=== PATIENT | female | born 1940 | race Caucasian/White ===

== ENCOUNTER 2021-10-19 13:16 | Inpatient (IN) | payer MEDICARE, SELFPAY ==
[2021-10-19] VITALS (10 sets, daily range): BP systolic 109–135; BP diastolic 51–88; PULSE 87–104; RESP 16–18; TEMP 37.1–37.5; O2SAT 95; BMI 20.7; BMI 20.8
--- NOTE | 2021-10-19 13:42 | XR_ITS ---
FINAL REPORT CLINICAL HISTORY: . aspiration , ams COMPARISON: September 10, 2021 FINDINGS: A single view of the chest was obtained. The multiple tubes and lines have been removed from prior. The heart is normal in size. The mediastinum is unremarkable. There are worsening left lung opacities, worrisome for worsening pneumonia. There is no pneumothorax. There is no acute osseous abnormality. IMPRESSION: Findings concerning for worsening pneumonia. Reviewed, Interpreted and Dictated by Bert Caraballo III, MD Transcribed by Sandra Dong Authenticated by Bert Caraballo III, MD on 10/19/2021 03:26:32 PM [facility]
[2021-10-19 13:48] LABS: Microscopic, Urine URINE MICROSCOPIC (MICROSCOPIC)
--- NOTE | 2021-10-19 13:51 | PC.NURSE ---
IV was established but unable to obtain blood. Notified lab at this time and requested someone to come down and collect blood, BC and lactic.
[2021-10-19 13:57] LABS: Appearance,Urine CLEAR (Clear); Bilirubin,Urine Negative (Negative); Blood, Urine TRACE-I (Negative); Color,Urine YELLOW (Yellow); Glucose,Urine (UA) Negative (Negative); Ketones,Urine Negative (Negative); Leukocyte Esterase,Urine Negative (Negative); Nitrate,Urine Negative (Negative); PH,Urine 7.5 (5.0-8.5); Protein,Urine Negative (Negative); Urobilinogen,Urine 0.2 EU/dl (0.2)
[2021-10-19 14:22] LABS: Squamous Epithelial Cell,Urine Occasional #/hpf (0-5)
--- NOTE | 2021-10-19 14:24 | HMH.EDGENADL ---
ED Disposition Clinical Impression: Dehydration, Healthcare-associated pneumonia, Hypernatremia Decubitus ulcers Qualifiers: Pressure injury location: unspecified location Pressure injury stage: unspecified pressure injury stage Qualified Code(s): L89.90 - Pressure ulcer of unspecified site, unspecified stage Disposition: Admitted As Inpatient Condition on Discharge: Fair Referrals: Enrique Chester [Primary Care Provider] - - Critical Care Critical Care Time: No Attestation: On , the high probability of a clinically significant, sudden or life threatening deterioration of the following system(s) required my full and direct attention, intervention and personal management. The time I documented below is in addition to time spent performing reported procedures but includes the following listed in this critical care notation. Medical Decision Making - Ricky Inquiry Pt receiving controlled substance: No Vital Signs: 10/19/21 13:16 10/19/21 14:35 10/19/21 15:01 Temperature 99.5 F Temperature Source Rectal Pulse Rate 97 H 97 H Pulse Rate [Right Brachial] 94 H Respiratory Rate 18 18 Blood Pressure 109/53 L 123/88 Blood Pressure [Right Arm] 115/51 L Blood Pressure Mean [Right Arm] 72 Blood Pressure Source Automatic Cuff Blood Pressure Source [Right Arm] Automatic Cuff Blood Pressure Position Sitting Blood Pressure Position [Right Arm] Sitting 02 Sat by Pulse Oximetry 95 95 Oxygen Delivery Method Nasal Cannula Nasal Cannula Oxygen Flow Rate (LPM) 2 3 10/19/21 15:42 10/19/21 16:00 Temperature Temperature Source Pulse Rate 87 104 H Pulse Rate [Right Brachial] Respiratory Rate 16 Blood Pressure 134/59 L 125/66 Blood Pressure [Right Arm] Blood Pressure Mean [Right Arm] Blood Pressure Source Automatic Cuff Automatic Cuff Blood Pressure Source [Right Arm] Blood Pressure Position Sitting Sitting Blood Pressure Position [Right Arm] 02 Sat by Pulse Oximetry 95 95 Oxygen Delivery Method Nasal Cannula Nasal Cannula Oxygen Flow Rate (LPM) 2 2 - Lab Data Lab Results 10/19/21 13:40: Urine Color Yellow, Urine Appearance Clear, Urine pH 7.5, Ur Specific [place] 1.010, Urine Protein Negative, Urine Glucose (UA) Negative, Urine Ketones Negative, Urine Blood Trace-i, Urine Nitrate Negative, Urine Bilirubin Negative, Urine Urobilinogen 0.2, Ur Leukocyte Esterase Negative, Urine RBC 3-5, Urine WBC 3-5, Ur Squamous Epith Cells Occasional, Urine Bacteria None 10/19/21 15:00: Sodium 150 H, Potassium 5.3 H, Chloride 118 H, Carbon Dioxide 26, Anion Gap 11.3, BUN 67 H, Creatinine 0.90, Estimated Creat Clear 39, Estimated GFR 60, Est GFR ( Amer) 73, Glucose 170 H, Calcium 8.4, Total Bilirubin 0.7, AST 71 H, ALT 41, Alkaline Phosphatase 118, Total Protein 6.8, Albumin 2.9 L, Globulin 3.9 H, Albumin/Globulin Ratio 0.7 L 10/19/21 15:00: Lactate 1.4 10/19/21 15:26: WBC 11.8 H, RBC 3.41 L, Hgb 10.3 L, Hct 32.9 L, MCV 96.5, MCH 30.1, MCHC 31.2 L, RDW 15.9, Plt Count 417, MPV 9.2, Neut % (Auto) 69.1, Lymph % (Auto) 23.1, [place] % (Auto) 5.3, Eos % (Auto) 0.8, Baso % (Auto) 1.7, Neut # (Auto) 8.2 H, Lymph # (Auto) 2.7, [place] # (Auto) 0.6, Eos # (Auto) 0.1, Baso # (Auto) 0.2 10/19/21 15:29: SARS-CoV-2 (PCR) Not detected, Influenza A Untype (PCR) Not detected, Influenza Type B (PCR) Not detected Result diagrams: 10/19/21 15:26 10/19/21 15:00 Orders (Tests/Meds): ED MEDICATIONS Generic Name Dose Route Start Last Admin Trade Name Freq PRN Reason Stop Dose Admin Cefepime HCl 2 gm/ Sodium 100 mls @ 100 mls/hr 10/19/21 15:45 10/19/21 16:09 Chloride IV 11/02/21 15:44 100 mls/hr Q12H JUDD Administration Levofloxacin/Dextrose 750 mg in 150 mls @ 100 mls/hr 10/19/21 15:47 Levofloxacin 750mg/150ml Premix IV 11/02/21 15:44 Q48H JUDD Vancomycin HCl 750 mg/ Sodium 250 mls @ 125 mls/hr 10/19/21 16:00 Chloride IV 11/02/21 15:59 Q24H JUDD Lactated Ringer's 1,000 mls @ 999 ml
--- NOTE | 2021-10-19 14:25 | PC.NURSE ---
Lab at bedside at this time, attempting to collect blood
--- NOTE | 2021-10-19 14:26 | PC.NURSE ---
MD at bedside speaking with daughter
--- NOTE | 2021-10-19 14:26 | PC.NURSE ---
I went in and spoke with daughter related to the history and events leading up to today, she advised pt was admitted to [facility] on August 30 with a bad UTI and became septic and ultimately ended up on the vent with a Gtube placement. Daughter advises she was in the hospital until September 22 when she returned home with the grandson due to the set up being more accommodating. Daughter advises she goes every day and cares for her mother and home health has been coming in. Advises the wounds on her started while she was in the hospital and she has been caring for them, along with home health. Daughter advises [facility] came today and assessed the patient and accepted to her to their facility but had concerns about her wounds and needing antibiotic therapy for them.
--- NOTE | 2021-10-19 15:02 | PC.NURSE ---
per lab staff she was only able to get 1 pediatric blood culture on pt at this time.
[2021-10-19 15:22] LABS: Lactic Acid 1.4 mmol/L (0.7-2.1)
--- NOTE | 2021-10-19 15:23 | SW/DCPLANNER ---
Addendum entered by Melba [place] 10/28/21 09:51: Updated patient information has been faxed to [facility] to resume home health services. Addendum entered by Melba [place] 10/21/21 13:45: Patient will NOT need IV antibiotics at time of discharge. I have informed Indira that patient will require P.O. antibiotics. Addendum entered by [facility] 10/21/21 13:40: The plan is for this patient to discharge to [facility] level of care today. Indira has requested a COVID swab prior to discharge. I have informed Indira that patient will have PICC line placed today and will discharge and need seven more days of IV Vanc. Addendum entered by Melba [place] 10/19/21 15:41: Indira [facility] has stated that she can not accept this patient till tomorrow morning. This patient will require a COVID swab prior to admission to [facility] Original Note: Per Indira [facility] this patient has been accepted to their facility once medically stable for discharge. Patient will admit to [facility] under Medicaid pending. Discharge date is unknown at this time. ED staff has been made aware of situation.
--- NOTE | 2021-10-19 15:23 | PC.NURSE ---
Lab at bedside
[2021-10-19 15:38] LABS: Coronavirus 19, PCR Not Detected (NotDetected); Influenza A, PCR Not Detected (NotDetected); Influenza B, PCR Not Detected (NotDetected)
[2021-10-19 15:40] LABS: Basophils # 0.2 K/mm3 (0-0.2); Basophils % 1.7 % (0.1-2.0); Eosinophils # 0.1 K/mm3 (0.0-0.4); Eosinophils % 0.8 % (0.1-12.0); Hematocrit 32.9 % (37.0-47.0); Hemoglobin 10.3 g/dL (12.2-16.2); Lymphocytes # 2.7 K/mm3 (0.7-4.5); Lymphocytes % 23.1 % (10-50); Mean Corpuscular HGB Conc 31.2 g/dL (31.8-35.4); Mean Corpuscular Hemoglobin 30.1 pg (27.0-31.2); Mean Corpuscular Volume 96.5 fl (81-99); Mean Platelet Volume 9.2 fl (7.4-10.4); Monocytes # 0.6 K/mm3 (0.1-1.0); Monocytes % 5.3 % (1.7-9.3); Neutrophils # 8.2 K/mm3 (1.8-7.8); Neutrophils % 69.1 % (37.0-80.0); Platelet Count 417 K/mm3 (142-424); Red Blood Count 3.41 M/mm3 (4.20-5.40); Red Cell Distribution Width 15.9 % (11.5-17.5); White Blood Count 11.8 K/mm3 (4.8-10.8)
[2021-10-19 15:41] LABS: Alanine Aminotransferase 41 U/L (12-78); Albumin Level 2.9 g/dl (3.5-5.0); Albumin/Globulin Ratio 0.7 (1.1-1.8); Alkaline Phosphatase 118 U/L (38-126); Anion Gap 11.3 mEq/L (5-15); Aspartate Amino Transferase 71 U/L (14-36); Bilirubin,Total 0.7 mg/dl (0.2-1.3); Blood Urea Nitrogen 67 mg/dl (7-17); Calcium 8.4 mg/dl (8.4-10.2); Carbon Dioxide 26 mmol/L (22.0-30.0); Chloride 118 mmol/L (98-107); Creatinine Clearance Estimated 39 mL/min (50-200); Estimated Glomerular Filt Rate 60 ml/min (>60); GFR (African American) 73 ML/MIN (>60); Globulin 3.9 g/dL (1.3-3.2); Glucose 170 mg/dl (74-100); Potassium 5.3 mmoL/L (3.5-5.1); Total Protein,Serum 6.8 g/dl (6.3-8.2)
--- NOTE | 2021-10-19 15:42 | PC.NURSE ---
Notified pharmacy of antibiotic orders
[2021-10-19 15:44] LABS: Sodium 150 mmol/L (136-145)
--- NOTE | 2021-10-19 15:44 | PC.NURSE ---
lab called with critical sodium of 150. Repeated, verified and reported to
--- NOTE | 2021-10-19 15:51 | HMH.PHACONS ---
- Pharmacy Consult Date: 10/19/21 Time: 15:51 Referring provider: DR. REYES Reason for Consult:: VANCOMYCIN DOSING Allergies and ADEs:: Allergies Allergy/AdvReac Type Severity Reaction Status Date / Time No Known Allergies Allergy Verified 10/19/21 13:42 Home Medications:: Home Medications Medication Instructions Recorded Confirmed Type Amiodarone HCl [Cordarone 200mg 200 mg G-TUBE DAILY 10/19/21 10/19/21 History tablet] Amlodipine Besylate [Amlodipine 10 mg G-TUBE DAILY 10/19/21 10/19/21 History 10mg Tab] Apixaban [Eliquis 2.5mg tab] 2.5 mg G-TUBE DAILY 10/19/21 10/19/21 History Atorvastatin Calcium [Lipitor 10mg 10 mg G-TUBE HS 10/19/21 10/19/21 History Tab] Donepezil HCl [Aricept] 10 mg PO HS 10/19/21 10/19/21 History Fluconazole [Diflucan 200mg tablet] 200 mg PO DAILY 10/19/21 10/19/21 History Furosemide [Lasix 20mg tab] 20 mg G-TUBE DAILY 10/19/21 10/19/21 History Memantine HCl [Memantine 10mg 10 mg G-TUBE DAILY 10/19/21 10/19/21 History Tablet] Metformin HCl 500 mg G-TUBE DAILY 10/19/21 10/19/21 History Nystatin [Nystop] 60 gm TP DAILY 10/19/21 10/19/21 History Quetiapine Fumarate [Seroquel 25mg 25 mg G-TUBE BID 10/19/21 10/19/21 History tablet] Sertraline HCl [Zoloft 50mg tablet] 50 mg G-TUBE ONCE 10/19/21 10/19/21 History Height: 1.65 m Weight: 56.699 kg Laboratory Results:: Laboratory Results - last 24 hr 10/19/21 13:40: Urine Color Yellow, Urine Appearance Clear, Urine pH 7.5, Ur Specific [place] 1.010, Urine Protein Negative, Urine Glucose (UA) Negative, Urine Ketones Negative, Urine Blood Trace-i, Urine Nitrate Negative, Urine Bilirubin Negative, Urine Urobilinogen 0.2, Ur Leukocyte Esterase Negative, Urine RBC 3-5, Urine WBC 3-5, Ur Squamous Epith Cells Occasional, Urine Bacteria None 10/19/21 15:00: Sodium 150 H, Potassium 5.3 H, Chloride 118 H, Carbon Dioxide 26, Anion Gap 11.3, BUN 67 H, Creatinine 0.90, Estimated Creat Clear 39, Estimated GFR 60, Est GFR ( Amer) 73, Glucose 170 H, Calcium 8.4, Total Bilirubin 0.7, AST 71 H, ALT 41, Alkaline Phosphatase 118, Total Protein 6.8, Albumin 2.9 L, Globulin 3.9 H, Albumin/Globulin Ratio 0.7 L 10/19/21 15:00: Lactate 1.4 10/19/21 15:26: WBC 11.8 H, RBC 3.41 L, Hgb 10.3 L, Hct 32.9 L, MCV 96.5, MCH 30.1, MCHC 31.2 L, RDW 15.9, Plt Count 417, MPV 9.2, Neut % (Auto) 69.1, Lymph % (Auto) 23.1, [place] % (Auto) 5.3, Eos % (Auto) 0.8, Baso % (Auto) 1.7, Neut # (Auto) 8.2 H, Lymph # (Auto) 2.7, [place] # (Auto) 0.6, Eos # (Auto) 0.1, Baso # (Auto) 0.2 Assessment and Plan - Assessment and plan all Dx Assessment and Plan for all problems:: Pharmacokinetic dosing service Objective: Patient: Floor: Age: 81 yo Serum creatinine: 0.90 mg/dL Height: 65.0 Inches Weight (kg): 56.7 Assessment: IBW (kg): 57.00 Dosing wt(kg): 56.7 Estimated Creatinine clearance (ml/min): 43.9 CRCL method: Cockcroft and Gault using ibw(default). Drug selected: Vancomycin Loading dose (mg): Vd (liters): 39.7 (factor used: 0.7 L/kg) Abner (hr-1): 0.041 Half life (hrs): 16.91 CLvanco=?? 1.628 L/hr Recommended dose: 750 mg Interval: 24 hrs Infusion time (hrs): 2.0 Predicted peak (mcg/mL): 29.0 Predicted trough (mcg/mL): 11.77 Total body weight is being used for vancomycin dosing. Recommendations: Give Vancomycin 750 mg q 24 hrs with an expected Cpeak of 29.0 mcg/ml and an expected Ctrough of 11.77 mcg/ml AUC 0-24 /CAROLINA Data: [place] 0.5 mcg/mL:?? AUC/[place]INA:? 921.4 [place] 1.0 mcg/mL:?? AUC/[place]INA:? 460.7 --------- [place] 1.5 mcg/mL:?? AUC/[place]INA:? 307.1 [place] 2.0 mcg/mL:?? AUC/[place]INA:? 230.3 Thank you for the consult, will continue to follow. -ABILIO LEYVA, KATELIND
--- NOTE | 2021-10-19 15:57 | PC.NURSE ---
pharmacy aware of vancomycin consult, spoke with lita
--- NOTE | 2021-10-19 16:36 | PC.NURSE ---
Spoke with daughter who is at bedside and updated her on POC. Agreeable at this time
--- NOTE | 2021-10-19 17:12 | PC.NURSE ---
ED MD at BS examining BL feet/ankle and giving update to family and patient
--- NOTE | 2021-10-19 17:36 | PC.NURSE ---
Notified house of admission and updated daughter on POC
--- NOTE | 2021-10-19 18:40 | PC.NURSE ---
data warehouse consultant states does have a bed assignment for pt, the room will have to be cleaned firest
--- NOTE | 2021-10-19 19:32 | PC.NURSE ---
Went in to start pt's levaquin and found blood all overthe floor and bed. Pt had pulled her IV out while daughter had stepped out of the room. Site covered with gauze and coban applies. Cleaned patient/floor/bed and monitor. Attempted IV access x 3 with no success at this time. Gave report to Analilia and Sue, who is now at the bedside attempting IV access. Also updated daughter that once bed was clean upstairs pt would be going up. Daughter understanding and agreeable with plan.
--- NOTE | 2021-10-19 20:00 | PC.NURSE ---
Called report to Arinaa. and confirmed tube feedings with daughter
--- NOTE | 2021-10-19 20:41 | PC.NURSE ---
PT ARRIVE TO FLOOR VIA STRETCHER FROM ED W/STAFF @ 2041
--- NOTE | 2021-10-19 22:04 | PC.NURSE ---
Patient is not able to give information, daughter isn't sure of medical history.
[2021-10-19 22:36] LABS: POC Glucose,Bedside 169 (70-110)
--- NOTE | 2021-10-19 23:08 | PC.WOUNDNOTE ---
Left outside ankle-[id number] Right inside foot - 1.5mmx1.5mm Right inside ankle [id number] Left buttocks 2mmx0.5mm Gluteal crease 5ypw0mb/3ypu2gd Left inside foot-2cm Left foot arch- [id number] Left heel Right outside of ankle [id number] Left big toe [id number] Right hip [id number] Right hip 0hee2ot Right side of back 4mmx2.5mm Left inside of knee-9cm Right inside of knee- 7cm
[2021-10-20] VITALS: BP 109/53; PULSE 95; RESP 18; TEMP 37.6; O2SAT 91
[2021-10-20 04:00] VITALS: BP 97/46; PULSE 95; RESP 16; TEMP 36.6; O2SAT 90
[2021-10-20 05:33] LABS: POC Glucose,Bedside 139 (70-110)
--- NOTE | 2021-10-20 06:18 | PC.NURSE ---
pt has rested t/o shift, has been repositioned Q2, pictures of wounds taken, and all wounds dressed, roberto in place, pt on room air, refuses to wear NC, O2 sats 90-91%
[2021-10-20 07:02] VITALS: BMI 20.7
--- NOTE | 2021-10-20 07:27 | HMH.PHAVTE ---
[facility] Pharmacy VTE Monitoring - Patient Demographics Admission date: 10/19/21 Report Date: 10/20/21 Time: 07:27 Allergies/Adverse Reactions: Patient Allergies No Known Allergies Allergy (Verified 10/19/21 13:42) Height: 1.65 m Weight: 56.6 kg Patient Problems: Current Active Problems Dehydration (Acute) Healthcare-associated pneumonia (Acute) Decubitus ulcers (Acute) Hypernatremia (Acute) - VTE Risk Labs: VTE Related Lab Results Hgb 10.3 g/dL (12.2-16.2) L 10/19/21 15:26 Hct 32.9 % (37.0-47.0) L 10/19/21 15:26 Plt Count 417 K/mm3 (142-424) 10/19/21 15:26 BUN 67 mg/dl (7-17) H 10/19/21 15:00 Creatinine 0.90 mg/dl (0.52-1.04) 10/19/21 15:00 Estimated Creat Clear 39 mL/min (50-200) 10/19/21 15:00 VTE Score: 7 VTE Risk Level: Moderate Risk - Prophylaxis VTE Prophylaxis Ordered?: Yes Types of VTE Prophylaxis: Pharmacological Pharmacologic Type: Other (ELIQUIS)
[2021-10-20 07:34] LABS: Basophils # 0.1 K/mm3 (0-0.2); Basophils % 1.2 % (0.1-2.0); Eosinophils # 0.1 K/mm3 (0.0-0.4); Eosinophils % 1.1 % (0.1-12.0); Hematocrit 29.5 % (37.0-47.0); Lymphocytes # 1.4 K/mm3 (0.7-4.5); Lymphocytes % 15.7 % (10-50); Mean Corpuscular HGB Conc 30.5 g/dL (31.8-35.4); Mean Corpuscular Hemoglobin 29.9 pg (27.0-31.2); Mean Platelet Volume 9.8 fl (7.4-10.4); Monocytes # 0.5 K/mm3 (0.1-1.0); Monocytes % 5.5 % (1.7-9.3); Neutrophils % 76.6 % (37.0-80.0); Platelet Count 340 K/mm3 (142-424); Red Blood Count 3.01 M/mm3 (4.20-5.40); Red Cell Distribution Width 15.9 % (11.5-17.5); White Blood Count 9.2 K/mm3 (4.8-10.8)
[2021-10-20 07:36] LABS: Chloride 117 mmol/L (98-107)
[2021-10-20 07:37] LABS: Potassium 4.1 mmoL/L (3.5-5.1); Sodium 147 mmol/L (136-145)
[2021-10-20 07:40] LABS: Anion Gap 9.1 mEq/L (5-15); Blood Urea Nitrogen 48 mg/dl (7-17); Calcium 7.4 mg/dl (8.4-10.2); Carbon Dioxide 25 mmol/L (22.0-30.0); Creatinine Clearance Estimated 39 mL/min (50-200); Estimated Glomerular Filt Rate 60 ml/min (>60); GFR (African American) 73 ML/MIN (>60); Glucose 130 mg/dl (74-100)
[2021-10-20 08:00] VITALS: BP 118/51; PULSE 100; RESP 17; TEMP 36.9; O2SAT 91; O2SAT 92
--- NOTE | 2021-10-20 08:05 | HMH.PHAINT ---
Home medication list has been verified using [employer] claim history and information provided by pt's relative.
--- NOTE | 2021-10-20 08:29 | HMH.PHACONS ---
- Pharmacy Consult Date: 10/20/21 Time: 08:29 Referring provider: DR. MEEK Reason for Consult:: VANCOMYCIN DOSING Allergies and ADEs:: Allergies Allergy/AdvReac Type Severity Reaction Status Date / Time No Known Allergies Allergy Verified 10/19/21 13:42 Home Medications:: Home Medications Medication Instructions Recorded Confirmed Type Amiodarone HCl [Cordarone 200mg 200 mg G-TUBE DAILY 10/19/21 10/19/21 History tablet] Amlodipine Besylate [Amlodipine 10 mg G-TUBE DAILY 10/19/21 10/19/21 History 10mg Tab] Apixaban [Eliquis 2.5mg tab] 2.5 mg G-TUBE BID 10/19/21 10/20/21 History Atorvastatin Calcium [Lipitor 10mg 10 mg G-TUBE HS 10/19/21 10/19/21 History Tab] Donepezil HCl [Aricept] 10 mg G-TUBE HS 10/19/21 10/20/21 History Furosemide [Lasix 20mg tab] 20 mg G-TUBE DAILY 10/19/21 10/19/21 History Memantine HCl [Memantine 10mg 10 mg G-TUBE BID 10/19/21 10/20/21 History Tablet] Metformin HCl 500 mg G-TUBE BID 10/19/21 10/20/21 History Nystatin [Nystop] 60 gm TP DAILY 10/19/21 10/19/21 History Quetiapine Fumarate [Seroquel 25mg 25 mg G-TUBE BID 10/19/21 10/19/21 History tablet] Sertraline HCl [Zoloft 50mg tablet] 50 mg G-TUBE DAILY 10/19/21 10/19/21 History Height: 1.65 m Weight: 56.6 kg Laboratory Results:: Laboratory Results - last 24 hr 10/19/21 13:40: Urine Color Yellow, Urine Appearance Clear, Urine pH 7.5, Ur Specific [place] 1.010, Urine Protein Negative, Urine Glucose (UA) Negative, Urine Ketones Negative, Urine Blood Trace-i, Urine Nitrate Negative, Urine Bilirubin Negative, Urine Urobilinogen 0.2, Ur Leukocyte Esterase Negative, Urine RBC 3-5, Urine WBC 3-5, Ur Squamous Epith Cells Occasional, Urine Bacteria None 10/19/21 15:00: Sodium 150 H, Potassium 5.3 H, Chloride 118 H, Carbon Dioxide 26, Anion Gap 11.3, BUN 67 H, Creatinine 0.90, Estimated Creat Clear 39, Estimated GFR 60, Est GFR ( Amer) 73, Glucose 170 H, Calcium 8.4, Total Bilirubin 0.7, AST 71 H, ALT 41, Alkaline Phosphatase 118, Total Protein 6.8, Albumin 2.9 L, Globulin 3.9 H, Albumin/Globulin Ratio 0.7 L 10/19/21 15:00: Lactate 1.4 10/19/21 15:26: WBC 11.8 H, RBC 3.41 L, Hgb 10.3 L, Hct 32.9 L, MCV 96.5, MCH 30.1, MCHC 31.2 L, RDW 15.9, Plt Count 417, MPV 9.2, Neut % (Auto) 69.1, Lymph % (Auto) 23.1, [place] % (Auto) 5.3, Eos % (Auto) 0.8, Baso % (Auto) 1.7, Neut # (Auto) 8.2 H, Lymph # (Auto) 2.7, [place] # (Auto) 0.6, Eos # (Auto) 0.1, Baso # (Auto) 0.2 10/19/21 15:29: SARS-CoV-2 (PCR) Not detected, Influenza A Untype (PCR) Not detected, Influenza Type B (PCR) Not detected 10/19/21 22:17: POC Glucose 169 H 10/20/21 05:20: POC Glucose 139 H 10/20/21 06:50: WBC 9.2, RBC 3.01 L, Hgb 9.0 L D, Hct 29.5 L, MCV 98.0, MCH 29.9, MCHC 30.5 L, RDW 15.9, Plt Count 340, MPV 9.8, Neut % (Auto) 76.6, Lymph % (Auto) 15.7, [place] % (Auto) 5.5, Eos % (Auto) 1.1, Baso % (Auto) 1.2, Neut # (Auto) 7.0, Lymph # (Auto) 1.4, [place] # (Auto) 0.5, Eos # (Auto) 0.1, Baso # (Auto) 0.1 10/20/21 06:50: Sodium 147 H, Potassium 4.1 D, Chloride 117 H, Carbon Dioxide 25, Anion Gap 9.1, BUN 48 H D, Creatinine 0.90, Estimated Creat Clear 39, Estimated GFR 60, Est GFR ( Amer) 73, Glucose 130 H D, Calcium 7.4 L Medical History: Reports:: Congestive Heart Failure, Deep Vein Thrombosis, Diabetes Mellitus Type 2, Hyperlipidemia, Hypertension, Peripheral Vascular Disease Denies:: Cancer, Diabetes Mellitus Type 1, MRSA Assessment and Plan - Assessment and plan all Dx Assessment and Plan for all problems:: Patient Metrics Age: 81 yrs Height: 65 in Total BW: 56.6 kg [place] BW: 57 kg Adjusted BW: N/A (0.99x ideal weight) CrCl: 35 mL/min Estimated Pharmacokinetic Parameters Clearance method: Population estimates from PK modeling (Ricardo 2010) [empiric; no drug levels] Vd method: Population estimates from PK modeling (Ricardo 2010) Vd: 87 L (1.53 L/kg) Abner: 0.0226 hr-1 (T1/2 = 30.7 hrs) CLvanco: 1.97 L/hr Dosing Recommendation
--- NOTE | 2021-10-20 09:43 | HMH.HP ---
*Admission Date: 10/19/21 *Chief complaint: fever, cough *History of present illness: History obtained from EMS and patient's daughter. Patient lives with her daughter. The patient has dementia and is unable to give further history herself. Daughter reports that the patient was admitted to [facility] 30 August and discharged on the . She was septic. She required intubation and a PICC line and feeding tube. Daughter says that at discharge it was preferred that she go to an extended care facility, but no bed could be found. She was discharged with home health nursing. Daughter states that immediately after discharge she began developing some sores on the inner aspects of her knees, initially just red. She now has developed decubitus ulcers in those locations as well as on her feet and ankles lower back, buttocks, and sacrum. The home health agency contacted [facility] in both home health personnel and [place] personnel came to the patient's house to see her today. They felt that she should be brought to the emergency room for medical evaluation and treatment. Daughter also states that she has had a congested cough for the past few days and was noted to have a low-grade fever 100-101 today by home health nursing. Prior to being hospitalized in August daughter states that the patient was ambulatory with a walker and could dress herself. She is now nonambulatory. Request that I check about possible transfer to [facility]. Daughter absolutely refuses to have her transferred there. Agrees to admit the patient to the hospital. We discussed the patient's clinical information, including history, exam, laboratory and radiology results and ED course. Per hospital procedure, I will write temporary bridge inpatient orders on the patient. Specific orders requested by the admitting physician: Continue antibiotics and IV fluids. (above as per ER Physician) Her chest x-ray in the ER showed findings concerning for worsening pneumonia. The patient is not able to give any history this morning and sleeps through exam. [facility] History I have reviewed the patient's past medical history: Yes Medical History: Reports:: Congestive Heart Failure, Deep Vein Thrombosis, Diabetes Mellitus Type 2, Hyperlipidemia, Hypertension, Peripheral Vascular Disease Denies:: Cancer, Diabetes Mellitus Type 1, MRSA *Have you ever received a pneumonia vaccine?: No *Have you received a flu vaccine this season?: No Other Surgeries: Yes: No Previous Surgery Amputation: No Fractures: No - *Social History Last grade of school completed: Advanced degree Smoking Status: Never smoker Alcohol Intake: never *Occupational Status:: retired Housing: house Household Members: family, children *Travel in the last 8 weeks: None Family Hx:: Unable to obtain Review of Systems - Review of Systems Review of systems:: unable to obtain Meds Home Medications Medication Instructions Recorded Confirmed Type Amiodarone HCl [Cordarone 200mg 200 mg G-TUBE DAILY 10/19/21 10/19/21 History tablet] Amlodipine Besylate [Amlodipine 10 mg G-TUBE DAILY 10/19/21 10/19/21 History 10mg Tab] Apixaban [Eliquis 2.5mg tab] 2.5 mg G-TUBE BID 10/19/21 10/20/21 History Atorvastatin Calcium [Lipitor 10mg 10 mg G-TUBE HS 10/19/21 10/19/21 History Tab] Donepezil HCl [Aricept] 10 mg G-TUBE HS 10/19/21 10/20/21 History Furosemide [Lasix 20mg tab] 20 mg G-TUBE DAILY 10/19/21 10/19/21 History Memantine HCl [Memantine 10mg 10 mg G-TUBE BID 10/19/21 10/20/21 History Tablet] Metformin HCl 500 mg G-TUBE BID 10/19/21 10/20/21 History Nystatin [Nystop] 60 gm TP DAILY 10/19/21 10/19/21 History Quetiapine Fumarate [Seroquel 25mg 25 mg G-TUBE BID 10/19/21 10/19/21 History tablet] Sertraline HCl [Zoloft 50mg tablet] 50 mg G-TUBE DAILY 10/19/21 10/19/21 History Allergies Allergy/AdvReac Type Severity Reaction Status Date / Time No Known Allergies
--- NOTE | 2021-10-20 10:38 | HMH.PTWOUND ---
Rehab Inpt Wound Evaluation Rehab IP Wound Evaluation Start: 10/20/21 08:00 Freq: ONCE Status: Active Protocol: Document 10/20/21 10:26 PHORNE (Rec: 10/20/21 10:38 PHORNE [id number]) Rehab PT Wound Assessment Subjective Subjective 81 yowf adm to [facility] with PNA. Pt suffers from dementia at baseline and presents with multiple wounds in various stages throughout her body. Largest wound was on her mid- back, R side of T-spine, and this wound was measured and debrided. NSG wound note details all other wounds. Wound Right Upper Back Wound Type Pressure Ulcer Is This a Chronic Wound Yes Wound Staging Stage III Query Text:Stage I - Unbroken, red skin, no blanching. Stage II - Skin broken, superficial skin loss involving epidermis alone or also dermis. Partial loss of skin layers. Stage III - Pressure area involves epidermis, dermis and subcutaneous tissue, full thickness skin loss. Stage IV - Pressure area involves epidermis, subcutaneous tissue, bone and other supportive tissue. Full thickness skin loss with extensive destruction of underlying tissue and structures. Wound Length (cm) 2.2 Wound Width (cm) 5.0 Wound Depth (cm) 0.2 Wound Bed Appearance Beefy Red,Yellow Percentage Granulated (%) 25 Percentage of Slough (%) 75 Wound Margins Description Well Defined Surrounding Tissue Appearance [place] Wound Drainage Description Purulent Drainage Amount Small Drainage Odor Foul Odor Dressing Status Changed Primary Dressing Composite Comment betadine and foam bordered dressing Wound Debridement Method Sharps,Forceps,Gauze Wound Debridement Amount of Tissue Moderate Removed Wound Debridement Result Yellow Sloughing Remains Dressing Change Patient Tolerance Tolerated Well Plan/Recommendation Comment NSG to follow for dresing changes at this time, PT will follow for wound debridement as necessary. Pt is most appropriate for SNF or LTAC placement due to significant
[2021-10-20 11:51] LABS: POC Glucose,Bedside 129 (70-110)
[2021-10-20 12:00] VITALS: BP 157/73; PULSE 89; RESP 19; TEMP 37; O2SAT 89
--- NOTE | 2021-10-20 13:15 | PC.NURSE ---
Addendum entered by Melony Manzo RN 10/20/21 16:04: TUBE FEEDINGS WERE STARTED AT 1530 THIS AFTERNOON AT 20 ML'S/HR. SPEECH CALLED AND STATED PT WILL HAVE A MODIFIED SWALLOW TEST AT 0800 IN THE MORNING 10/21. Original Note: PT IS RESTING IN BED. PT WILL OPEN HER EYES BUT WILL NOT RESPOND TO QUESTIONS. PT VERY MUCH DISLIKES BEING TURNED AND REPOSITIONED. MULTIPLE AREAS OF STAGEABLE AND UNSTAGEABLE WOUNDS NOTED. MOUTH AND LIPS EXTREMELY DRY. VERY POOR DENTATION NOTED. ORAL CARE PROVIDED. LUNG SOUNDS DIMINISHED. ABDOMEN SOFT/NON TENDER WITH G-TUBE NOTED. PT WAS GIVEN ALL MEDS PER G-TUBE. HEEL/ELBOW PROTECTORS IN PLACE. BLE CONTRACTED. VSS. WILL CONTINUE TO MONITOR.
--- NOTE | 2021-10-20 13:56 | DIET.NUTRFU ---
Spoke to nursing and daughter via phone. Patient lived with her grandson most of the time but daughter went over and checked on her mother at night to turn and changed tubefeeding bags. She was receiving 100% nutrition via G-tube and comfort foods orally- which consist of cheetos/soup and pudding. She had the G-tube put in at [place], was there from August 30-. She believes they were grounding her meats but did agreed with LINE INSTALLATION SUPERVISOR seeing her while she was her. This RD went in to interview, she did not wake up but her teeth appear to be in bad shape and her lips very cracked with dark edges. Daughter reports they already ahve a discharge plan to go to [facility] from here. She is noted to have multiple areas of skin breakdown and was on prostat at home 30ml BID for additional protein to promote healing. Daughter does believe she has lost about 20# over the last couple months. LINE INSTALLATION SUPERVISOR consulted and will put tubefeeding diet in.
[2021-10-20 15:50] VITALS: BP 118/49; PULSE 88; RESP 16; TEMP 37.1; O2SAT 90
[2021-10-20 15:52] LABS: POC Glucose,Bedside 112 (70-110)
[2021-10-20 20:00] VITALS: BP 107/59; PULSE 79; RESP 18; TEMP 36.4; O2SAT 90; O2SAT 92
[2021-10-21] VITALS: BP 101/46; PULSE 82; RESP 18; TEMP 36.4; O2SAT 92
[2021-10-21 04:00] VITALS: BP 115/51; PULSE 80; RESP 18; TEMP 36.6; O2SAT 94
[2021-10-21 08:00] VITALS: BP 105/47; PULSE 84; RESP 16; TEMP 36.6; O2SAT 96
--- NOTE | 2021-10-21 08:23 | FL_ITS ---
FINAL REPORT CLINICAL HISTORY: dysphagia ft: 3:07 FINDINGS: MODIFIED BARIUM SWALLOW History: Dysphagia. FINDINGS: Fluoroscopy was provided for the speech pathologist to evaluate the swallowing mechanism. The patient was given several different consistencies of barium while the swallow was visualized fluoroscopically. The report of the speech pathologist should be consulted prior to making dietary decisions. FLUOROSCOPY TIME: 3 minutes 7 seconds. 1970 runs were obtained. IMPRESSION: Modified barium swallow under fluoroscopic guidance. Please see the report of the speech pathologist for more detail. Films reviewed , interpreted and dictated by Dr. Caraballo. Transcribed by Adair Cain PA-C. Reviewed, Interpreted and Dictated by Bert Caraballo III, MD Transcribed by ABDON Cervantes Authenticated by Bert Caraballo III, MD on 10/21/2021 11:43:[address] [facility]
--- NOTE | 2021-10-21 08:43 | HMH.ACPN2 ---
Internal Medicine - PN: Subj *Date: 10/21/21 *Time: 08:43 Interval history: Patient is awake this morning and the only thing she says is water. She cannot answer any questions. There is no family present. Exam Vital signs and Labs for Last 24 Hours: Temp Pulse Resp BP Pulse Ox 97.8 F 80 18 115/51 L 94 L 10/21/21 04:00 10/21/21 04:00 10/21/21 04:00 10/21/21 04:00 10/21/21 04:00 Laboratory Results - last 24 hr 10/20/21 11:38: POC Glucose 129 H 10/20/21 15:37: POC Glucose 112 H I & O for Last 24 hours: Intake & Output 10/18/21 10/19/21 10/20/21 10/21/21 11:59 11:59 11:59 11:59 Intake Total 1008 / 1008 1093 / 1093 Output Total 550 / 550 1050 / 1050 Balance 458 / 458 43 / 43 Weight 124 lb 12.506 oz Microbiology Reports for the Last 24 Hours: Microbiology 10/19/21 21:47 Back - Wound Gram Stain - Final 10/19/21 21:47 Back - Wound Wound Culture - Preliminary NO GROWTH AFTER 24 HOURS 10/19/21 21:47 Knee,Left - Wound Gram Stain - Final 10/19/21 21:47 Knee,Left - Wound Wound Culture - Preliminary NO GROWTH AFTER 24 HOURS 10/19/21 21:47 Knee,Right - Wound Gram Stain - Final 10/19/21 21:47 Knee,Right - Wound Wound Culture - Preliminary NO GROWTH AFTER 24 HOURS 10/19/21 15:00 Blood Blood Culture - Preliminary - Constitutional no acute distress - *Routine Respiratory Exam Present: decreased breath sounds, wheezes - *Routine Cardiovascular Exam Present: RRR - *Routine Abdominal Exam Present: soft, normoactive bowel sounds. Absent: tenderness - *Routine Extremities Exam Absent: cyanosis, clubbing, edema - *Routine Skin Exam Present: warm. Absent: rash - *Routine Neurological Exam Present: altered mental status Assessment and Plan (1) Decubitus ulcers Status: Acute Qualifiers: Pressure injury location: unspecified location Pressure injury stage: unspecified pressure injury stage Qualified Code(s): L89.90 - Pressure ulcer of unspecified site, unspecified stage Category: Medical Code(s): L89.90 - Pressure ulcer of unspecified site, unspecified stage (2) Dehydration Status: Acute Category: Medical Code(s): E86.0 - Dehydration (3) Healthcare-associated pneumonia Status: Acute Category: Medical Code(s): J18.9 - Pneumonia, unspecified organism (4) Hypernatremia Status: Acute Category: Medical Code(s): E87.0 - Hyperosmolality and hypernatremia (5) CHF (congestive heart failure) Status: Chronic Category: Medical Code(s): I50.9 - Heart failure, unspecified (6) Type 2 diabetes mellitus Status: Chronic Category: Medical Code(s): E11.9 - Type 2 diabetes mellitus without complications (7) HTN (hypertension) Status: Chronic Category: Medical Code(s): I10 - Essential (primary) hypertension (8) Hyperlipemia Status: Chronic Category: Medical Code(s): E78.5 - Hyperlipidemia, unspecified (9) Peripheral vascular disease Status: Chronic Category: Medical Code(s): I73.9 - Peripheral vascular disease, unspecified (10) History of DVT (deep vein thrombosis) Status: Chronic Category: Medical Code(s): Z86.718 - Personal history of other venous thrombosis and embolism - Assessment and plan all Dx Assessment and Plan for all problems:: Speech therapy has done a swallowing eval and recommends pudding thick liquids. The patient did apparently speak to them when they were in the room. She remains confused but likely has baseline dementia. We are still unsure why she has the G-tube. White blood cell count improved. The patient does have a bed at [place] when she is medically stable to discharge.
--- NOTE | 2021-10-21 09:13 | DIET.NUTRFU ---
Addendum entered by Kristen Soler RD, LD 10/21/21 14:42: Spoke to UNDERWATER TRAPPER, completed Barium swallow study and recommended puree with chano think. Based on performance during swallow UNDERWATER TRAPPER is also recommending for pleasure only and to continue TF to meet 100%. Patient would not be able to tolerate oral diet to meet 100% of needs. Plan to discharge to [facility] today. Patient also pulled her IV out, 200ml bolus provided. Once goal rate of TF is reached 100% fluid are provided via PEG Original Note: RD spoke to nursing this AM, she is tolerating TF currently at 30ml/hr. Had a small amount of residual last night 10ml. Patient had barium swallow study this morning, will follow up with results. Will continue to meet 100% nutrition via TF at goal rate of 70ml/hr ATC. Based on her confusion she will need total assistance with any oral intake and oral care. Plan is discharge to [facility] when ready. Patient is still receiving IVF, Will need to reval flush if IVF still running when goal rate is reached. No new labs today. Continues on Insulin, BS 112H today. Will continue to follow TF tolerance and appropriate oral diet
--- NOTE | 2021-10-21 10:17 | HMH.SLMBS2 ---
Speech & Language Evaluation Speech/Language Mod Barium Swallow Start: 10/20/21 13:45 Freq: ONCE Status: Complete Protocol: Document 10/21/21 10:04 MONIQUE (Rec: 10/21/21 10:17 MONIQUE [id number]) General Information General Current Food Consistancy NPO Dentition Poor Dentition Oxygen Status Room Air Facial Symmetry Symmetrical Ability to Follow Directions Poor Communication Ability Severe Impairment Voice Comment Patient is unable to state her name, date of , location , or answer questions. She is hard of hearing which makes it difficult to answer any questions or follow directions . MBS Recommendations Diet Dietary Recommendations Pureed,Pudding Liquids Treatment/Strategies Strategy/Precaution Recommend Sitting Upright (90 deg),Small Bites and Sips,Alternate Liquids/Solids Mod Barium Swallow Impressions Summary and Impressions Oral Phase Impression Mild Impairment Oral Phase Summary Ms. Pemberton was given the following consisencies: thins via straw and opoen cup, nectar via straw, honey via straw, pudding, pureed, and mechanical soft. She became fatigued while eating mechanical soft consistency. Pharyngeal Phase Impression Moderate Impairment Pharyngeal Phase Summary Ms. Pemberton exhibited premature spillage with thins, nectar, and honey consistency which caused penetration into laryngeal vestibue. She is at risk for aspiration with thins , nectar, and honey consistencies. At this time, it is recommended that she be placed on pureed diet with pudding thick liquids. Speech/Language MBS Assessment/Goals/Plan Assessment Date of Evaluation: 10/21/21 Evaluation Type Initial Certification Assessment/Problems Dysphagia Does Patient Qualify for Service No Qualify/Failure Comment Patient is on least restrictive diet at this time. Recommendations PHYSICIAN CERTIFICATION: The specified therapy services are required, authorized, and reviewed every 30 days. Diet Recommendations Pureed Liqu
--- NOTE | 2021-10-21 11:00 | PC.NURSE ---
pt pulled out IV and is combative at times.
[2021-10-21 12:00] VITALS: BP 96/44; PULSE 78; RESP 16; TEMP 36.6; O2SAT 99
--- NOTE | 2021-10-21 12:53 | HMH.DCSUM ---
General - General Admission date:: 10/19/21 Discharge date: 10/21/21 HPI HPI: History obtained from EMS and patient's daughter. Patient lives with her daughter. The patient has dementia and is unable to give further history herself. Daughter reports that the patient was admitted to [facility] 30 August and discharged on the . She was septic. She required intubation and a PICC line and feeding tube. Daughter says that at discharge it was preferred that she go to an extended care facility, but no bed could be found. She was discharged with home health nursing. Daughter states that immediately after discharge she began developing some sores on the inner aspects of her knees, initially just red. She now has developed decubitus ulcers in those locations as well as on her feet and ankles lower back, buttocks, and sacrum. The home health agency contacted [facility] in both home health personnel and [facility] personnel came to the patient's house to see her today. They felt that she should be brought to the emergency room for medical evaluation and treatment. Daughter also states that she has had a congested cough for the past few days and was noted to have a low-grade fever 100-101 today by home health nursing. Prior to being hospitalized in August daughter states that the patient was ambulatory with a walker and could dress herself. She is now nonambulatory. Request that I check about possible transfer to [facility]. Daughter absolutely refuses to have her transferred there. Agrees to admit the patient to the hospital. We discussed the patient's clinical information, including history, exam, laboratory and radiology results and ED course. Per hospital procedure, I will write temporary bridge inpatient orders on the patient. Specific orders requested by the admitting physician: Continue antibiotics and IV fluids. (above as per ER Physician) Her chest x-ray in the ER showed findings concerning for worsening pneumonia. The patient is not able to give any history this morning and sleeps through exam. Hospital Course Hospital Course: Patient was admitted and started on some of her home medications along with cefepime, Levaquin, and vancomycin for healthcare acquired pneumonia. A wound care consult was ordered. She had multiple wounds in various stages throughout her body. The largest wound was on her mid back. It was measured and debrided by the wound care team. They felt the [facility] due to significant wounds and comorbidities. Dietary was consulted due to her tube feeds. Dietary contacted the patient's daughter via phone and found out the patient was receiving 100% nutrition via G-tube and comfort foods orally which consisted of cheetos, soup, and pudding. She had a G-tube placed at [facility] while she was admitted over the course of August 30 through . A swallowing evaluation was ordered to rule out aspiration and a tube feeding diet was added. She appeared to tolerate tube feeds and had a small amount of residual. Speech therapy felt she was at risk for aspiration with thins, nectar, and honey consistencies. They recommended she be placed on a pur?ed diet with pudding thick liquids. By 10/21/2021, the patient was awake and able to say a few words. She was still very confused and no family was present. Her white blood cell count improved. She was moving air better on the left side, which was the area of focus for her pneumonia. Her wound cultures are still pending. Her blood culture is growing gram positive cocci. She will be discharged on zyvox and levaquin. Objective Vital signs: Temp Pulse Resp BP Pulse Ox 97.8 F 84 16 105/47 L 96 10/21/21 08:00 10/21/21 08:00 10/21/21 08:00 10/21/21 08:00 10/21/21 08:00 Narrative: - Constitutional Comments: Patient sleeps through exam. She does open he
[2021-10-21 13:24] LABS: Coronavirus 19, PCR Not Detected (NotDetected); Influenza A, PCR Not Detected (NotDetected); Influenza B, PCR Not Detected (NotDetected)
--- NOTE | 2021-10-21 13:32 | PC.NURSE ---
200 ml bolus of water given per PEG tube per MD v/o. md also stated he would change levoquin dose to PO to be admin per PEG tube.
--- NOTE | 2021-10-24 15:40 | CARE MANAGER ---
Spoke with Erna at [facility] in post discharge phone interview and she states that patient is doing well, she has no issues at this time.
== END 2021-10-21 15:34 | DRG 193 ==
LOC: ER 17:38 → 2ND 10-20 03:22
PROVIDERS: Family Medicine; Admitting Provider Family Medicine; Emergency Provider Emergency Medicine; PCP Family Medicine; Visit Provider Family Medicine
DX: J18.9 Pneumonia, unspecified organism (principal); L89.893 Pressure ulcer of other site, stage 3; E87.0 Hyperosmolality and hypernatremia; Y95 Nosocomial condition; E86.0 Dehydration; F03.90 Unspecified dementia, unspecified severity, without behavioral disturbance, psychotic disturbance, mood disturbance, and anxiety; I11.0 Hypertensive heart disease with heart failure; I50.9 Heart failure, unspecified; E78.5 Hyperlipidemia, unspecified; E11.51 Type 2 diabetes mellitus with diabetic peripheral angiopathy without gangrene; Z79.84 Long term (current) use of oral hypoglycemic drugs; Z86.718 Personal history of other venous thrombosis and embolism; L89.899 Pressure ulcer of other site, unspecified stage; L89.219 Pressure ulcer of right hip, unspecified stage; L89.529 Pressure ulcer of left ankle, unspecified stage; L89.519 Pressure ulcer of right ankle, unspecified stage; L89.159 Pressure ulcer of sacral region, unspecified stage; L89.309 Pressure ulcer of unspecified buttock, unspecified stage
CPT/HCPCS: 36415; 51702; 70371; 71045; 80048; 80053; 81001; 82962; 83605; 85025; 87040; 87070; 87077; 87186; 87205; 92611; 99285; C9803; J1956; J3370; U0003; U0005

== ENCOUNTER → 2021-11-14 18:51 | Outpatient (CLI) | payer MEDICARE, SELFPAY | PROVIDERS: Visit Provider Internal Medicine Adolescent Medicine | DX: S81.002A Unspecified open wound, left knee, initial encounter (principal); S81.001A Unspecified open wound, right knee, initial encounter; B96.89 Other specified bacterial agents as the cause of diseases classified elsewhere; B96.4 Proteus (mirabilis) (morganii) as the cause of diseases classified elsewhere; B95.7 Other staphylococcus as the cause of diseases classified elsewhere | CPT/HCPCS: 87070; 87077; 87186; 87205 ==

== ENCOUNTER 2021-11-22 01:02 | Inpatient (IN) | payer MEDICARE, SELFPAY ==
[2021-11-22] VITALS (26 sets, daily range): BP systolic 75–125; BP diastolic 32–80; PULSE 74–114; RESP 18–26; TEMP 36.4–37.8; O2SAT 83–100; BMI 27.7; BMI 24.3
--- NOTE | 2021-11-22 01:07 | ECG_ITS ---
APPROVED REPORT Exam: Resting ECG HR:96 bpm ECG Measurements Heart Rate 96 AXES WV 220 P 53 QRSd 147 QRS 149 QT 402 T 28 QTc 456 Conclusion SINUS RHYTHM WITH FIRST DEGREE AV BLOCK RIGHT AXIS DEVIATION [QRS AXIS > 100] INTRAVENTRICULAR CONDUCTION DELAY [130+ ms QRS DURATION] ABNORMAL ECG UNCONFIRMED REPORT Electronically signed by : Adalberto Birch MD 11/22/2021 21:20:23
--- NOTE | 2021-11-22 01:25 | XR_ITS ---
PROCEDURE INFORMATION: Exam: XR Chest Exam date and time: 11/22/2021 1:58 AM Age: 81 years old Clinical indication: Shortness of breath; Additional info: Short of air TECHNIQUE: Imaging protocol: XR of the chest. Views: 1 view. COMPARISON: CR XR CHEST PORTABLE 10/19/2021 1:47 PM FINDINGS: Lungs: There are diffuse patchy parenchymal infiltrates bilaterally with relative sparing of the left lung apex, increased since 10/19/2021. There is stable elevation of the right hemidiaphragm. Pleural spaces: Small pleural effusions not excluded. No pneumothorax. Heart/Mediastinum: Heart size appears mildly enlarged however cardiac borders are obscured. Bones/joints: Unremarkable. IMPRESSION: Diffuse patchy parenchymal opacities bilaterally suspicious for pneumonia.
[2021-11-22 01:34] LABS: ABG Base Excess 4.8 mmol/L (-2.4-2.3); ABG HCO3 26.8 mmhg (22.0-26.0); ABG Oxygen Saturation 85 % (90-100); ABG PCO2 29.9 mmhg (35.0-45.0); ABG TCO2 27.8 mmhg (23-27)
[2021-11-22 01:35] LABS: Allen's Test Patient Unable; Oxygen 6LPM %; Source Right Radial
[2021-11-22 01:37] LABS: ABG PH 7.57 mmol/L (7.35-7.45); ABG PO2 47.9 mmhg (80-100)
--- NOTE | 2021-11-22 01:51 | HMH.EDSOB ---
ED Disposition Clinical Impression: Healthcare-associated pneumonia, Severe sepsis with acute organ dysfunction, Septic shock Decubitus ulcers Qualifiers: Pressure injury location: unspecified location Pressure injury stage: unspecified pressure injury stage Qualified Code(s): L89.90 - Pressure ulcer of unspecified site, unspecified stage Type 2 diabetes mellitus Qualifiers: Diabetes mellitus watermelon inspector insulin use: unspecified skilled nursing insulin use status Diabetes mellitus complication status: with other specified complication Qualified Code(s): E11.69 - Type 2 diabetes mellitus with other specified complication Disposition: Admitted As Inpatient Condition on Discharge: Serious - Critical Care Critical Care Time: No Attestation: On 11/22/21, the high probability of a clinically significant, sudden or life threatening deterioration of the following system(s) required my full and direct attention, intervention and personal management. The time I documented below is in addition to time spent performing reported procedures but includes the following listed in this critical care notation. Medical Decision Making - Medical Records Medical records reviewed: Yes: I reviewed the patient's medical records. - Ricky Inquiry Pt receiving controlled substance: No Vital Signs: 11/22/21 01:01 11/22/21 02:16 11/22/21 02:37 Temperature 100.1 F H Temperature Source Rectal Pulse Rate 79 88 Pulse Rate [Left] 114 H Respiratory Rate 26 H Blood Pressure 75/35 L 84/40 L Blood Pressure [Right Arm] 78/34 L Blood Pressure Mean 45 54 Blood Pressure Mean [Right Arm] 48 02 Sat by Pulse Oximetry 89 L 86 L 88 L Oxygen Delivery Method Room Air Oxygen Flow Rate (LPM) 6 6 11/22/21 03:03 11/22/21 03:19 11/22/21 03:30 Temperature Temperature Source Pulse Rate 86 87 87 Pulse Rate [Left] Respiratory Rate Blood Pressure 88/51 L 99/35 L 84/33 L Blood Pressure [Right Arm] Blood Pressure Mean 52 56 Blood Pressure Mean [Right Arm] 02 Sat by Pulse Oximetry 88 L 91 L 83 L Oxygen Delivery Method Oxygen Flow Rate (LPM) 6 6 6 11/22/21 03:32 Temperature Temperature Source Pulse Rate 74 Pulse Rate [Left] Respiratory Rate Blood Pressure 96/80 L Blood Pressure [Right Arm] Blood Pressure Mean 83 Blood Pressure Mean [Right Arm] 02 Sat by Pulse Oximetry 88 L Oxygen Delivery Method Oxygen Flow Rate (LPM) 6 - Lab Data Lab results reviewed: Yes: I reviewed the patient's lab results. Lab Results 11/22/21 01:27: Specimen Source Right radial, O2 % 6lpm, ABG pH 7.57 H*, ABG pCO2 29.9 L, ABG pO2 47.9 L, ABG HCO3 26.8 H, ABG Total CO2 27.8 H, ABG O2 Saturation 85 L*, ABG Base Excess 4.8 H, Praful Test Patient unable 11/22/21 01:38: WBC 15.0 H, RBC 2.83 L, Hgb 8.0 L, Hct 25.5 L, MCV 90.0, MCH 28.4, MCHC 31.5 L, RDW 17.6 H, Plt Count 491 H, MPV 8.0, Neut % (Auto) 90.4 H, Lymph % (Auto) 5.7 L, Boone % (Auto) 3.5, Eos % (Auto) 0.1, Baso % (Auto) 0.2, Neut # (Auto) 13.5 H, Lymph # (Auto) 0.9, [place]one # (Auto) 0.5, Eos # (Auto) 0.0, Baso # (Auto) 0.0, Total Counted 100, Neutrophils % (Manual) 96 H, Lymphocytes % (Manual) 3 L, Monocytes % (Manual) 1 L, Platelet Estimate Normal, RBC Morphology Not Reportable, Anisocytosis 1+, Stomatocytes 1+ 11/22/21 01:38: Sodium 131 L, Potassium 3.9, Chloride 96 L, Carbon Dioxide 28, Anion Gap 10.9, BUN 43 H, Creatinine 1.00, Estimated Creat Clear 54, Estimated GFR 53 L, Est GFR ( Amer) 64, Glucose 167 H, Calcium 8.1 L, Total Bilirubin 0.3, AST 30, ALT 22, Alkaline Phosphatase 133 H, Troponin I 0.08 H, C-Reactive Protein 273.7 H, Total Protein 6.3, Albumin 2.5 L, Globulin 3.8 H, Albumin/Globulin Ratio 0.7 L, Amylase 54, Lipase 102, Procalcitonin 0.267 11/22/21 01:50: SARS-CoV-2 (PCR) Not detected, Influenza A Untype (PCR) Not detected, Influenza Type B (PCR) Not detected 11/22/21 01:56: Lactate 3.0 H 11/22/21 02:34: Urine Color Yellow, Urine Appearance Clear, Urine pH 5.0, Ur Specific
[2021-11-22 01:56] LABS: Basophils % 0.2 % (0.1-2.0); Eosinophils % 0.1 % (0.1-12.0); Hematocrit 25.5 % (37.0-47.0); Lymphocytes # 0.9 K/mm3 (0.7-4.5); Lymphocytes % 5.7 % (10-50); Mean Corpuscular HGB Conc 31.5 g/dL (31.8-35.4); Mean Corpuscular Hemoglobin 28.4 pg (27.0-31.2); Monocytes # 0.5 K/mm3 (0.1-1.0); Monocytes % 3.5 % (1.7-9.3); Neutrophils # 13.5 K/mm3 (1.8-7.8); Neutrophils % 90.4 % (37.0-80.0); Platelet Count 491 K/mm3 (142-424); Red Blood Count 2.83 M/mm3 (4.20-5.40); Red Cell Distribution Width 17.6 % (11.5-17.5)
[2021-11-22 02:02] LABS: Chloride 96 mmol/L (98-107); Potassium 3.9 mmoL/L (3.5-5.1); Sodium 131 mmol/L (136-145)
[2021-11-22 02:04] LABS: Alanine Aminotransferase 22 U/L (12-78); Amylase 54 U/L (30-110); Aspartate Amino Transferase 30 U/L (14-36); Blood Urea Nitrogen 43 mg/dl (7-17); Creatinine Clearance Estimated 54 mL/min (50-200); Estimated Glomerular Filt Rate 53 ml/min (>60); GFR (African American) 64 ML/MIN (>60)
[2021-11-22 02:05] LABS: Albumin Level 2.5 g/dl (3.5-5.0); Albumin/Globulin Ratio 0.7 (1.1-1.8); Alkaline Phosphatase 133 U/L (38-126); Anion Gap 10.9 mEq/L (5-15); Bilirubin,Total 0.3 mg/dl (0.2-1.3); Calcium 8.1 mg/dl (8.4-10.2); Carbon Dioxide 28 mmol/L (22.0-30.0); Globulin 3.8 g/dL (1.3-3.2); Glucose 167 mg/dl (74-100); Lipase 102 U/L (23-300); Total Protein,Serum 6.3 g/dl (6.3-8.2)
[2021-11-22 02:10] LABS: C-Reactive Protein 273.7 mg/L (0-4); MANUAL DIFFERENTIAL MANUAL DIFFERENTIAL (MANUAL DIFF)
[2021-11-22 02:16] LABS: Troponin I 0.08 ng/ml (0.00-0.034)
[2021-11-22 02:24] LABS: Coronavirus 19, PCR Not Detected (NotDetected); Influenza A, PCR Not Detected (NotDetected); Influenza B, PCR Not Detected (NotDetected)
--- NOTE | 2021-11-22 02:36 | PC.NURSE ---
Pt daughter at [facility]
[2021-11-22 02:45] LABS: Procalcitonin 0.267 ng/mL (0.0-2.0)
[2021-11-22 02:49] LABS: Microscopic, Urine URINE MICROSCOPIC (MICROSCOPIC)
[2021-11-22 03:01] LABS: Appearance,Urine CLEAR (Clear); Bilirubin,Urine Negative (Negative); Blood, Urine Negative (Negative); Color,Urine YELLOW (Yellow); Glucose,Urine (UA) Negative (Negative); Ketones,Urine Negative (Negative); Leukocyte Esterase,Urine Negative (Negative); Nitrate,Urine Negative (Negative); Protein,Urine Negative (Negative); Specific Gravity, Urine 1.015 (1.005-1.030)
[2021-11-22 03:15] LABS: Lymphocytes % 3 % (10-50); Monocytes % 1 % (2-9); Neutrophils % 96 % (42-76); Total Cells Counted 100
[2021-11-22 03:16] LABS: Anisocytosis 1+; Platelet Estimate Normal; Stomatocytes 1+
[2021-11-22 03:28] LABS: Bacteria,Urine Trace /lpf
[2021-11-22 03:50] LABS: Erythrocyte Sedimentation Rate > 140 mm/hr (0-30)
--- NOTE | 2021-11-22 04:19 | PC.NURSE ---
PT TO FLOOR AT [phone]
[2021-11-22 05:56] LABS: POC Glucose,Bedside 186 (70-110)
[2021-11-22 06:23] LABS: Reflex Lactic Add Lactic Reflex
--- NOTE | 2021-11-22 07:15 | HMH.PHAVTE ---
[facility] Pharmacy VTE Monitoring - Patient Demographics Admission date: 11/22/21 Report Date: 11/22/21 Time: 07:15 Allergies/Adverse Reactions: Patient Allergies No Known Allergies Allergy (Verified 11/22/21 06:13) Height: 1.68 m Weight: 68.521 kg Patient Problems: Current Active Problems Healthcare-associated pneumonia (Acute) Decubitus ulcers (Acute) Type 2 diabetes mellitus (Chronic) Severe sepsis with acute organ dysfunction (Acute) Septic shock (Acute) - VTE Risk Labs: VTE Related Lab Results Hgb 8.0 g/dL (12.2-16.2) L 11/22/21 01:38 Hct 25.5 % (37.0-47.0) L 11/22/21 01:38 Plt Count 491 K/mm3 (142-424) H 11/22/21 01:38 BUN 43 mg/dl (7-17) H 11/22/21 01:38 Creatinine 1.00 mg/dl (0.52-1.04) 11/22/21 01:38 Estimated Creat Clear 54 mL/min (50-200) 11/22/21 01:38 VTE Score: 9 VTE Risk Level: Moderate Risk - Prophylaxis VTE Prophylaxis Ordered?: Yes Types of VTE Prophylaxis: TEDS Knee High Location of Applied Device: Bilateral Lower Extremeties
--- NOTE | 2021-11-22 07:30 | HMH.HP ---
*Admission Date: 11/22/21 *Chief complaint: respiratory distress, fever, bed sores *History of present illness: Ms. Pemberton is a medically fragile 81-year-old female with chronic decubitus ulcers, bed bound status, dementia who presented from [facility] to the ER due to hypoxia, fever, and altered mental status. She has had a progressive decline over the past 3 months since presenting to [facility] where she needed intubation, ended up with a G-tube, was sent home with home health and became nonambulatory. Was readmitted to [facility] with transfer to [facility]. Has continued to decline with worsening of her decubitus ulcers, malnutrition, and bedbound status. [facility] contacted on-call physician and was concerned that Ms. Pemberton was somewhat more confused, hypoxic with saturations in the 60s and 70s, and in more pain. She was transferred to the ER via EMS for further evaluation. On arrival to the ER she was found to be septic and initiated on sepsis bundle. Received fluids and broad-spectrum antibiotics. Cultures obtained. Admitted for further management of her progressing decubitus ulcers, suspected pneumonia, and respiratory failure. On rounds this morning patient is hemodynamically stable but frail appearing. Numerous wounds examined including decubitus ulcers on her hips, bilateral medial knees, feet. She is in pain with the slightest movement. Stable on supplemental oxygen. No meaningful response to questions from patient. [facility] History I have reviewed the patient's past medical history: Yes Medical History: Reports:: Congestive Heart Failure, Deep Vein Thrombosis, Diabetes Mellitus Type 2, Hyperlipidemia, Hypertension, Peripheral Vascular Disease Denies:: Cancer, Diabetes Mellitus Type 1, MRSA *Have you ever received a pneumonia vaccine?: No *Have you received a flu vaccine this season?: No Other Surgeries: Yes: No Previous Surgery Amputation: No Fractures: No - *Social History Smoking Status: Never smoker Alcohol Intake: never *Occupational Status:: retired Housing: house Household Members: family, children *Travel in the last 8 weeks: None Family Hx:: Unable to obtain Review of Systems - Review of Systems Review of systems:: pertinent systems reviewed and negative unless documented below Meds Home Medications Medication Instructions Recorded Confirmed Type Amiodarone HCl [Cordarone 200mg 200 mg G-TUBE DAILY 10/19/21 11/22/21 History tablet] Amlodipine Besylate [Amlodipine 10 mg G-TUBE DAILY 10/19/21 11/22/21 History 10mg Tab] Apixaban [Eliquis 2.5mg tab] 2.5 mg G-TUBE BID 10/19/21 11/22/21 History Furosemide [Lasix 20mg tablet] 20 mg G-TUBE DAILY 10/19/21 11/22/21 History Metformin HCl 500 mg G-TUBE BIDWMEAL 10/19/21 11/22/21 History Quetiapine Fumarate [Seroquel 25mg 25 mg G-TUBE BID 10/19/21 11/22/21 History tablet] Sertraline HCl [Zoloft 50mg tablet] 50 mg G-TUBE DAILY 10/19/21 11/22/21 History Acetaminophen [Acetaminophen Extra 1,000 mg G-TUBE Q6HP PRN 11/22/21 11/22/21 History Strength] Esomeprazole Magnesium [Nexium] 40 mg G-TUBE HS 11/22/21 11/22/21 History Gabapentin [Gabapentin 100mg Cap] 100 mg PO HS 11/22/21 11/22/21 History Multivit-Min/Ferrous Fumarate 9 mg G-TUBE DAILY 11/22/21 11/22/21 History [Complete Multivit-Mineral Liq] Sulfamethoxazole/Trimethoprim 1 each PO BID 11/22/21 11/22/21 History [Bactrim DS tablet] Allergies Allergy/AdvReac Type Severity Reaction Status Date / Time No Known Allergies Allergy Verified 11/22/21 06:13 Exam Vital signs and Labs for Last 24 Hours: Temp Pulse Resp BP Pulse Ox 98.9 F 89 22 103/51 L 100 11/22/21 04:07 11/22/21 04:07 11/22/21 04:07 11/22/21 04:07 11/22/21 05:00 Laboratory Results - last 24 hr 11/22/21 01:27: Specimen Source Right radial, O2 % 6lpm, ABG pH 7.57 H*, ABG pCO2 29.9 L, ABG pO2 47.9 L, ABG HCO3 26.8 H, ABG T
--- NOTE | 2021-11-22 07:40 | PC.WOUNDNOTE ---
left buttocks coccyx old pressure area
--- NOTE | 2021-11-22 07:43 | PC.WOUNDNOTE ---
right inner knee right inner ankle and inner foot left outer ankle
--- NOTE | 2021-11-22 07:44 | PC.WOUNDNOTE ---
right outer ankle right outer ankle left inner foot
--- NOTE | 2021-11-22 07:46 | PC.WOUNDNOTE ---
left inner knee left inner knee right buttocks
--- NOTE | 2021-11-22 07:49 | PC.WOUNDNOTE ---
mid back scrapes to upper back
--- NOTE | 2021-11-22 07:52 | HMH.PHAINT ---
MEDICATION RECONCILIATION COMPLETED ON PATIENT USING MAR FROM [facility]. -ABILIO LEYVA, KATELIND
--- NOTE | 2021-11-22 07:57 | HMH.PHACONS ---
- Pharmacy Consult Date: 11/22/21 Time: 07:57 Referring provider: DR GUADARRAMA Reason for Consult:: VANCOMYCIN DOSING CONSULT Allergies and ADEs:: Allergies Allergy/AdvReac Type Severity Reaction Status Date / Time No Known Allergies Allergy Verified 11/22/21 06:13 Home Medications:: Home Medications Medication Instructions Recorded Confirmed Type Amiodarone HCl [Cordarone 200mg 200 mg G-TUBE DAILY 10/19/21 11/22/21 History tablet] Amlodipine Besylate [Amlodipine 10 mg G-TUBE DAILY 10/19/21 11/22/21 History 10mg Tab] Apixaban [Eliquis 2.5mg tab] 2.5 mg G-TUBE BID 10/19/21 11/22/21 History Furosemide [Lasix 20mg tablet] 20 mg G-TUBE DAILY 10/19/21 11/22/21 History Metformin HCl 500 mg G-TUBE BIDWMEAL 10/19/21 11/22/21 History Quetiapine Fumarate [Seroquel 25mg 25 mg G-TUBE BID 10/19/21 11/22/21 History tablet] Sertraline HCl [Zoloft 50mg tablet] 50 mg G-TUBE DAILY 10/19/21 11/22/21 History Acetaminophen [Acetaminophen Extra 1,000 mg G-TUBE Q6HP PRN 11/22/21 11/22/21 History Strength] Esomeprazole Magnesium [Nexium] 40 mg G-TUBE HS 11/22/21 11/22/21 History Gabapentin [Gabapentin 100mg Cap] 100 mg PO HS 11/22/21 11/22/21 History Multivit-Min/Ferrous Fumarate 9 mg G-TUBE DAILY 11/22/21 11/22/21 History [Complete Multivit-Mineral Liq] Sulfamethoxazole/Trimethoprim 1 each PO BID 11/22/21 11/22/21 History [Bactrim DS tablet] Height: 1.68 m Weight: 68.521 kg Laboratory Results:: Laboratory Results - last 24 hr 11/22/21 01:27: Specimen Source Right radial, O2 % 6lpm, ABG pH 7.57 H*, ABG pCO2 29.9 L, ABG pO2 47.9 L, ABG HCO3 26.8 H, ABG Total CO2 27.8 H, ABG O2 Saturation 85 L*, ABG Base Excess 4.8 H, Praful Test Patient unable 11/22/21 01:38: WBC 15.0 H, RBC 2.83 L, Hgb 8.0 L, Hct 25.5 L, MCV 90.0, MCH 28.4, MCHC 31.5 L, RDW 17.6 H, Plt Count 491 H, MPV 8.0, Neut % (Auto) 90.4 H, Lymph % (Auto) 5.7 L, [place] % (Auto) 3.5, Eos % (Auto) 0.1, Baso % (Auto) 0.2, Neut # (Auto) 13.5 H, Lymph # (Auto) 0.9, [place] # (Auto) 0.5, Eos # (Auto) 0.0, Baso # (Auto) 0.0, Total Counted 100, Neutrophils % (Manual) 96 H, Lymphocytes % (Manual) 3 L, Monocytes % (Manual) 1 L, Platelet Estimate Normal, RBC Morphology Not Reportable, Anisocytosis 1+, Stomatocytes 1+, ESR > 140 H 11/22/21 01:38: Sodium 131 L, Potassium 3.9, Chloride 96 L, Carbon Dioxide 28, Anion Gap 10.9, BUN 43 H, Creatinine 1.00, Estimated Creat Clear 54, Estimated GFR 53 L, Est GFR ( Amer) 64, Glucose 167 H, Calcium 8.1 L, Total Bilirubin 0.3, AST 30, ALT 22, Alkaline Phosphatase 133 H, Troponin I 0.08 H, C-Reactive Protein 273.7 H, Total Protein 6.3, Albumin 2.5 L, Globulin 3.8 H, Albumin/Globulin Ratio 0.7 L, Amylase 54, Lipase 102, Procalcitonin 0.267 11/22/21 01:50: SARS-CoV-2 (PCR) Not detected, Influenza A Untype (PCR) Not detected, Influenza Type B (PCR) Not detected 11/22/21 01:56: Lactate 3.0 H 11/22/21 02:34: Urine Color Yellow, Urine Appearance Clear, Urine pH 5.0, Ur Specific [place] 1.015, Urine Protein Negative, Urine Glucose (UA) Negative, Urine Ketones Negative, Urine Blood Negative, Urine Nitrate Negative, Urine Bilirubin Negative, Urine Urobilinogen 1.0, Ur Leukocyte Esterase Negative, Urine Bacteria Trace 11/22/21 05:20: POC Glucose 186 H Medical History: Reports:: Congestive Heart Failure, Deep Vein Thrombosis, Diabetes Mellitus Type 2, Hyperlipidemia, Hypertension, Peripheral Vascular Disease Denies:: Cancer, Diabetes Mellitus Type 1, MRSA Assessment and Plan - Assessment and plan all Dx Assessment and Plan for all problems:: Pharmacokinetic dosing service Objective: Age: 81 yo Serum creatinine: 1.0 mg/dL Height: 66.1 Inches Weight (kg): 68.52 Diagnosis: HCAP, SEPSIS Assessment: IBW (kg): 59.53 Dosing wt(kg): 68.52 Estimated Creatinine clearance (ml/min): 41.5 CRCL method: Cockcroft and Gault using ibw(default). D
[2021-11-22 08:12] LABS: Anion Gap 13.1 mEq/L (5-15); Blood Urea Nitrogen 43 mg/dl (7-17); Calcium 7.7 mg/dl (8.4-10.2); Carbon Dioxide 24 mmol/L (22.0-30.0); Chloride 99 mmol/L (98-107); Creatinine Clearance Estimated 48 mL/min (50-200); Estimated Glomerular Filt Rate 60 ml/min (>60); GFR (African American) 73 ML/MIN (>60); Glucose 168 mg/dl (74-100); Potassium 4.1 mmoL/L (3.5-5.1); Sodium 132 mmol/L (136-145)
[2021-11-22 08:13] LABS: Magnesium 2.1 mg/dl (1.6-2.3)
--- NOTE | 2021-11-22 08:30 | PC.WOUNDNOTE ---
assessment of buttock at start of shift.
[2021-11-22 08:57] LABS: Basophils % 0.1 % (0.1-2.0); Eosinophils % 0.1 % (0.1-12.0); Hematocrit 27.2 % (37.0-47.0); Hemoglobin 8.5 g/dL (12.2-16.2); Lymphocytes # 0.7 K/mm3 (0.7-4.5); Lymphocytes % 3.4 % (10-50); Mean Corpuscular HGB Conc 31.2 g/dL (31.8-35.4); Mean Corpuscular Hemoglobin 28.3 pg (27.0-31.2); Mean Corpuscular Volume 90.7 fl (81-99); Mean Platelet Volume 8.4 fl (7.4-10.4); Monocytes # 0.4 K/mm3 (0.1-1.0); Monocytes % 2.1 % (1.7-9.3); Neutrophils # 19.5 K/mm3 (1.8-7.8); Neutrophils % 94.3 % (37.0-80.0); Platelet Count 554 K/mm3 (142-424); Red Cell Distribution Width 17.4 % (11.5-17.5); White Blood Count 20.7 K/mm3 (4.8-10.8)
[2021-11-22 09:02] LABS: Lactic Acid Follow Up (RFLX 1) 2.9 mmol/L (0.7-2.1)
--- NOTE | 2021-11-22 09:22 | DIET.NUTRFU ---
Addendum entered by Kristen Soler RD, LD 11/22/21 12:44: Reviewed TF order with nurse, nurse is waiting for provider okay to start. Provider was planning to review code status and POC with family befire starting aggressive tx Original Note: RD reviewed patients chart from [place], patient is receiving nutrition via PEG tube. RD saw patient during rounds she has multiple areas of skin breakdown, protein needs are high. She would also benefit form vitamin C and zinc to promote healing. Patient is a diabetic, takes metformin at CT, insulin in place. She is also on ABT tx and NaCl. CT was running TF at 55ml/hr ATC with Webtalk 2.0. Will use Glucerna with goal rate of 85ml/hr providing 2040kcal (30kcal/kg), 85gm protein (1.3gm/kg) and 1740ml free water with flush of 50ml TID to provide additional 150ml with [id number]/day( 28ml/kg). Healing needs are 30kcal/kg, 1.5gm/kg protein and CHF is 25-30ml/kg. Will order beneprotein via tube 1 scoop BID to provide additional 12gm protein with total protein at 97gm/day. Administrative instructions for tube are on container. Labs reviewed Na 132L, K 4.1, BUN 43H, CR 0.9, glucose 168, albumin 2.5L, lactate 2.9, C-reactiove protein 273.7, alk phosp 133H. Renal fxn WNL, with increased protein prescribed will continue to monitor Cr level. currently has NaCl in place, once TF reaches goal rate discontinue.
[2021-11-22 10:43] LABS: Reflex Lactic (2 hrs) Add Lactic Reflex
--- NOTE | 2021-11-22 11:00 | HMH.PTWOUND ---
Rehab Inpt Wound Evaluation Rehab IP Wound Evaluation Start: 11/22/21 06:55 Freq: ONCE Status: Active Protocol: Document 11/22/21 09:19 PHORONNIE (Rec: 11/22/21 11:00 PHORNE [id number]) Rehab PT Wound Assessment Subjective Subjective 81 yowf adm to [facility] with sepsis . She has dementia at baseline and severe LE contractures B. She presents with multiple pressure ulcers of differing severity and stages of healing . Wound Right Lateral Hip Wound Type Pressure Ulcer Is This a Chronic Wound Yes Wound Staging Stage III Query Text:Stage I - Unbroken, red skin, no blanching. Stage II - Skin broken, superficial skin loss involving epidermis alone or also dermis. Partial loss of skin layers. Stage III - Pressure area involves epidermis, dermis and subcutaneous tissue, full thickness skin loss. Stage IV - Pressure area involves epidermis, subcutaneous tissue, bone and other supportive tissue. Full thickness skin loss with extensive destruction of underlying tissue and structures. Wound Length (cm) 10 Wound Width (cm) 8 Wound Bed Appearance Beefy Red,Yellow,Slough Percentage Granulated (%) 50 Percentage of Slough (%) 50 Wound Margins Description Indistinct Surrounding Tissue Appearance [place] Wound Drainage Description Serosanguineous Drainage Amount Small Dressing Status Dry & Intact Dressing Change Patient Tolerance Tolerated Poorly Plan/Recommendation Comment Pt wounds currently dressed appropriately by nursing staff . Questionable whether debridement of wounds will provide an improvement in this patient's condition at this time due to significant co- morbid status. PT will debride as needed if deemed necessary . Pt adamantly refuses any mobility and screams with all attempts to roll for observation of her many wounds . Eval Complexity Eval Charge Codes 60605 - High Complexity PHYSICIAN CERTIFICATION: I certify the specified the
[2021-11-22 11:51] LABS: Lactic Acid Follow up (RFLX 2) 1.2 mmol/L (0.7-2.1)
[2021-11-22 12:22] LABS: POC Glucose,Bedside 194 (70-110)
--- NOTE | 2021-11-22 15:39 | CARE MANAGER ---
Addendum entered by Melba Mccarty 11/24/21 09:29: Updated patient information has been faxed to [facility]/ [facility]. I have informed Indira that patient will need to return with IV Invanz: she has approved this plan. Patient could potentially discharge back tomorrow. Addendum entered by Melba Mccarty 11/23/21 09:16: Patient's family has called back stating they are no longer in Hospice Care at this time. I have followed up with Gogo at Hospice regarding situation. Addendum entered by Melba Mccarty 11/23/21 07:51: Patient information has been faxed to [facility]. Original Note: Patient was sent to our facility from [facility]. I called and spoke to daughter, Jennifer William regarding Hospice services per Dr. Hawthorne's request. Jennifer was agreeable for Hospice consult. Consent papers left with Evelia on floor so that Jennifer can sign when she visits this afternoon. Consult will be faxed to [facility]. Called and spoke with [facility] staff, who state that patient is able to return with Hospice when medically ready. Patient is in a long-term bed and Medicaid pending.
--- NOTE | 2021-11-22 16:07 | PC.NURSE ---
0700: levophed started at 8mcg 1430 bp: 123/40 levophed decreased to 6mcg 1537 bp: 111/47 1600 bp: 110/49 Levophed decreased to 4mcg
--- NOTE | 2021-11-22 17:48 | XR_ITS ---
PROCEDURE INFORMATION: Exam: XR Abdomen Exam date and time: 11/22/2021 6:29 PM Age: 81 years old Clinical indication: Device placement; Gi device; Peg tube; Additional info: Possible displaced g tube TECHNIQUE: Imaging protocol: XR of the abdomen. Portable AP exam 6:36 p.m. Views: Frontal supine view of the abdomen. 1 View. COMPARISON: CR XR CHEST PORTABLE 11/22/2021 1:58 AM FINDINGS: Tubes, catheters and devices: Peg tube and balloon are projected over the stomach in the left upper quadrant abdomen, with surrounding injected contrast material within the gastric lumen. No extravasated contrast is seen abutting the stomach. A small amount of contrast is seen distal to this in the proximal duodenum. A tube or catheter projected over the lower rectum. Correlate clinically. Overlying food products sales representative electrodes. Gastrointestinal tract: Correlate for constipation, rectum and sigmoid are distended with fecal material and gas. Mild small intestinal air, no dilated loops to suggest obstruction. Organs: Multiple rounded calcifications in the right upper quadrant, correlate for possible cholelithiasis, versus renal stones or bowel content. Vasculature: Multiple tiny rounded calcifications in the lower pelvis, nonspecific but most likely phleboliths. Less likely would be urinary tract stones. Bones/joints: Osteopenia. Spinal degenerative changes with thoracolumbar scoliosis, multilevel disc narrowing and spondylosis. Lower lateral left rib fracture deformities appear likely chronic. Soft tissues: No acute findings in the soft tissues. IMPRESSION: 1. Peg tube appears in satisfactory position in the stomach, as detailed above. 2. Multiple additional nonemergency and chronic appearing findings as above.
--- NOTE | 2021-11-22 20:21 | PC.NURSE ---
notified Dr Hawthorne at 1735 that this RN had concerns that the pt PEG tube may be dislodged. order received from for [facility] for eval. ER MD Dr Drake at bedside at approx 1800 to instill contrast in peg tube to evaluate placement. awaiting official reading of xray . 1850 xray reading states: IMPRESSION: 1. Peg tube appears in satisfactory position in the stomach, as detailed above. PM RN aware of situation and reading. ok to start tube feeds and admin meds via peg
[2021-11-22 20:43] LABS: POC Glucose,Bedside 158 (70-110)
[2021-11-22 21:32] LABS: POC Glucose,Bedside 141 (70-110)
[2021-11-23] VITALS (17 sets, daily range): BP systolic 97–148; BP diastolic 43–73; PULSE 74–110; RESP 20–24; TEMP 36.5–38.6; O2SAT 92–100; BMI 25.2
[2021-11-23 05:29] LABS: POC Glucose,Bedside 163 (70-110)
--- NOTE | 2021-11-23 07:53 | PC.NURSE ---
Addendum entered by Rose Green RN 11/23/21 13:51: 1315-Levo gtt on standby BP 108/56 Addendum entered by Rose Green RN 11/23/21 12:27: 1220- Levo decreased to 1mcg. BP 120/57 Addendum entered by Rose Green RN 11/23/21 10:36: 1032-pt BP of 125/51. Levo gtt decreased to 2mcg Original Note: Levo gtt decreased to 3mcg. BP of 111/47
--- NOTE | 2021-11-23 08:46 | HMH.ACPN2 ---
Internal Medicine - PN: Subj *Date: 11/23/21 *Time: 08:46 Interval history: Patient had a smooth night overnight. Remains on Vapotherm per nasal cannula. Is comfortable. Has no complaints. Reviewed vital signs, labs and medications with nurse and pharmacy service on rounds. Exam Vital signs and Labs for Last 24 Hours: Temp Pulse Resp BP Pulse Ox 98.5 F 87 22 109/60 L 93 L 11/23/21 08:00 11/23/21 08:00 11/23/21 08:00 11/23/21 08:00 11/23/21 08:00 Laboratory Results - last 24 hr 11/22/21 08:25: WBC 20.7 H* D, RBC 3.00 L, Hgb 8.5 L, Hct 27.2 L, MCV 90.7, MCH 28.3, MCHC 31.2 L, RDW 17.4, Plt Count 554 H, MPV 8.4, Neut % (Auto) 94.3 H, Lymph % (Auto) 3.4 L, [place] % (Auto) 2.1, Eos % (Auto) 0.1, Baso % (Auto) 0.1, Neut # (Auto) 19.5 H, Lymph # (Auto) 0.7, [place] # (Auto) 0.4, Eos # (Auto) 0.0, Baso # (Auto) 0.0 11/22/21 08:25: Lactate 2.9 H 11/22/21 11:23: Lactate 1.2 11/22/21 12:15: POC Glucose 194 H 11/22/21 17:21: POC Glucose 158 H 11/22/21 21:12: POC Glucose 141 H 11/23/21 05:22: POC Glucose 163 H I & O for Last 24 hours: Intake & Output 11/20/21 11/21/21 11/22/21 11/23/21 11:59 11:59 11:59 11:59 Intake Total 3042 / 3042 Output Total 0 / 0 650 / 650 Balance 0 / 0 2392 / 2392 Weight 151 lb 0.972 oz 157 lb 3.2 oz Narrative: Patient is responsive. Alert. Follows commands. Is globally extremely weak. Cachectic. Decubitus that are widespread in her lower extremities, hips and buttocks are reviewed. Nursing pictures reviewed also. She has very poor pulmonary excursion but her lungs are clear. Heart rate regular with occasional ectopic beats. Abdomen is scaphoid but soft. Assessment and Plan (1) Severe sepsis with acute organ dysfunction Status: Acute Category: Medical Code(s): A41.9 - Sepsis, unspecified organism; R65.20 - Severe sepsis without septic shock (2) Healthcare-associated pneumonia Status: Acute Category: Medical Code(s): J18.9 - Pneumonia, unspecified organism (3) Decubitus ulcers Status: Chronic Qualifiers: Pressure injury location: other site Pressure injury stage: unspecified pressure injury stage Qualified Code(s): L89.899 - Pressure ulcer of other site, unspecified stage Category: Medical Code(s): L89.90 - Pressure ulcer of unspecified site, unspecified stage (4) Type 2 diabetes mellitus Status: Chronic Qualifiers: Diabetes mellitus mcfp insulin use: unspecified mcfp insulin use status Diabetes mellitus complication status: with other specified complication Qualified Code(s): E11.69 - Type 2 diabetes mellitus with other specified complication Category: Medical Code(s): E11.9 - Type 2 diabetes mellitus without complications (5) Peripheral vascular disease Status: Chronic Category: Medical Code(s): I73.9 - Peripheral vascular disease, unspecified (6) Severe protein-calorie malnutrition Status: Chronic Category: Medical Code(s): E43 - Unspecified severe protein-calorie malnutrition - Assessment and plan all Dx Assessment and Plan for all problems:: Patient has extremely poor prognosis. Family has decided to continue her DNR status that she [facility] the [facility] which is certainly a reasonable decision. Yesterday care management and nursing staff talk to her daughter regarding hospice care and she had agreed that this was reasonable and hospice consultation was planned for today. However, overnight apparently she is consulted with some type of healthcare affiliated relative who has told her that hospice would not provide wound care or antibiotics. In spite of our care management services discussion with her the daughter is now adamant that she does not wish hospice services. We will continue current therapy, and try to reach out to the daughter again later to discuss further treatment options versus reconsidering hospice when she has actual correct information.
[2021-11-23 09:42] LABS: Basophils % 0.3 % (0.1-2.0); Eosinophils # 0.2 K/mm3 (0.0-0.4); Eosinophils % 1.4 % (0.1-12.0); Hematocrit 24.6 % (37.0-47.0); Hemoglobin 7.8 g/dL (12.2-16.2); Lymphocytes # 0.8 K/mm3 (0.7-4.5); Lymphocytes % 5.2 % (10-50); Mean Corpuscular HGB Conc 31.8 g/dL (31.8-35.4); Mean Corpuscular Volume 91.3 fl (81-99); Mean Platelet Volume 8.9 fl (7.4-10.4); Monocytes # 0.6 K/mm3 (0.1-1.0); Monocytes % 3.7 % (1.7-9.3); Neutrophils # 14.6 K/mm3 (1.8-7.8); Neutrophils % 89.5 % (37.0-80.0); Platelet Count 493 K/mm3 (142-424); Red Cell Distribution Width 17.7 % (11.5-17.5); White Blood Count 16.3 K/mm3 (4.8-10.8)
[2021-11-23 09:45] LABS: MANUAL DIFFERENTIAL MANUAL DIFFERENTIAL (MANUAL DIFF)
[2021-11-23 10:05] LABS: Alanine Aminotransferase 17 U/L (12-78); Albumin Level 2.3 g/dl (3.5-5.0); Albumin/Globulin Ratio 0.6 (1.1-1.8); Alkaline Phosphatase 114 U/L (38-126); Anion Gap 10.9 mEq/L (5-15); Aspartate Amino Transferase 28 U/L (14-36); Blood Urea Nitrogen 36 mg/dl (7-17); Calcium 7.8 mg/dl (8.4-10.2); Carbon Dioxide 24 mmol/L (22.0-30.0); Chloride 106 mmol/L (98-107); Creatinine Clearance Estimated 50 mL/min (50-200); Estimated Glomerular Filt Rate 69 ml/min (>60); GFR (African American) 83 ML/MIN (>60); Globulin 3.6 g/dL (1.3-3.2); Glucose 152 mg/dl (74-100); Magnesium 2.1 mg/dl (1.6-2.3); Potassium 3.9 mmoL/L (3.5-5.1); Sodium 137 mmol/L (136-145); Total Protein,Serum 5.9 g/dl (6.3-8.2)
[2021-11-23 10:26] LABS: Anisocytosis 1+; Hypochromasia 1+; Lymphocytes % 6 % (10-50); Monocytes % 9 % (2-9); Neutrophils % 85 % (42-76); Platelet Estimate Slight Increase; Total Cells Counted 100
[2021-11-23 10:27] LABS: Ovalocytes 1+
[2021-11-23 10:56] LABS: Bilirubin,Total < 0.1 mg/dl (0.2-1.3)
--- NOTE | 2021-11-23 11:41 | DIET.NUTRFU ---
Spoke to nursing and patient is tolerating tubefeeding at 35ml/hr also providing the additional protein to promote healing. Labs on 11/23 are WNL. Skin tx in place, family was considering hospice but not sure at this time. Continues at DNR status. Plan is to discharge back to NH, they are familiar with feedings
--- NOTE | 2021-11-23 11:57 | PC.NURSE ---
Sputum sample sent to lab.
[2021-11-23 12:04] LABS: POC Glucose,Bedside 152 (70-110)
--- NOTE | 2021-11-23 17:02 | PC.NURSE ---
Pt is currently 55mL/hr of ordered tube feed. Pt has tolerated feeds well this shift, along w/ 50mL flushes. Residuals have been performed q4h and were 0mL, 0mL, and 20mL. Pt received a hibiclens bath this shift. All dressing removed and new ones placed. Heel protectors placed on pt for protection. Pt has been a q2h turn. Pt has refused oral care multiple times this shift. Pt remains on 4LNC. Sinus arrythmia on tele. Levo gtt remains off, per MD Birch pt can come out of SD. Crespo cath draining cloudy, dark yellow urine. No other acute changes or complaints, will monitor.
[2021-11-23 17:45] LABS: POC Glucose,Bedside 130 (70-110)
[2021-11-23 20:57] LABS: POC Glucose,Bedside 167 (70-110)
[2021-11-24] VITALS (7 sets, daily range): BP systolic 99–144; BP diastolic 43–76; PULSE 90–101; RESP 18–23; TEMP 36.4–37.9; O2SAT 90–96; BMI 25.6
[2021-11-24 04:38] LABS: Vancomycin,Trough 13.2 ug/mL (5.0-10.0)
--- NOTE | 2021-11-24 04:47 | PC.NURSE ---
spoke with lab about vanc trough results. Lab stated they were putting results in computer.
[2021-11-24 05:34] LABS: POC Glucose,Bedside 158 (70-110)
--- NOTE | 2021-11-24 08:39 | HMH.ACPN2 ---
Internal Medicine - PN: Subj *Date: 11/24/21 *Time: 08:39 Interval history: No major changes overnight. Patient is not running more fevers. Nursing did comprehensive wound management yesterday with dressing changes and patient is very leery of having the wounds touched after that experience for her which is obviously fairly painful. No respiratory or cardiac events overnight. Please see yesterday's notes regarding her daughters reversal of her previous decision to involve hospice care. Exam Vital signs and Labs for Last 24 Hours: Temp Pulse Resp BP Pulse Ox 99.0 F 93 H 21 99/43 L 93 L 11/24/21 04:00 11/24/21 04:00 11/24/21 04:00 11/24/21 04:00 11/24/21 04:00 Laboratory Results - last 24 hr 11/23/21 09:35: WBC 16.3 H, RBC 2.70 L, Hgb 7.8 L, Hct 24.6 L, MCV 91.3, MCH 29.0, MCHC 31.8, RDW 17.7 H, Plt Count 493 H, MPV 8.9, Neut % (Auto) 89.5 H, Lymph % (Auto) 5.2 L, Hand % (Auto) 3.7, Eos % (Auto) 1.4, Baso % (Auto) 0.3, Neut # (Auto) 14.6 H, Lymph # (Auto) 0.8, Hand # (Auto) 0.6, Eos # (Auto) 0.2, Baso # (Auto) 0.0, Total Counted 100, Neutrophils % (Manual) 85 H, Lymphocytes % (Manual) 6 L, Monocytes % (Manual) 9, Platelet Estimate Slight increase, Hypochromasia 1+, Anisocytosis 1+, Ovalocytes 1+ 11/23/21 09:35: Sodium 137, Potassium 3.9, Chloride 106, Carbon Dioxide 24, Anion Gap 10.9, BUN 36 H, Creatinine 0.80, Estimated Creat Clear 50, Estimated GFR 69, Est GFR ( Amer) 83, Glucose 152 H, Calcium 7.8 L, Magnesium 2.1, Total Bilirubin < 0.1 L, AST 28, ALT 17, Alkaline Phosphatase 114, Total Protein 5.9 L, Albumin 2.3 L, Globulin 3.6 H, Albumin/Globulin Ratio 0.6 L 11/23/21 11:55: POC Glucose 152 H 11/23/21 17:26: POC Glucose 130 H 11/23/21 20:30: POC Glucose 167 H 11/24/21 03:06: Vancomycin Trough 13.2 H 11/24/21 05:26: POC Glucose 158 H I & O for Last 24 hours: Intake & Output 11/21/21 11/22/21 11/23/21 11/24/21 11:59 11:59 11:59 11:59 Intake Total 3076 / 3076 1389 / 1389 Output Total 0 / 0 650 / 650 250 / 250 Balance 0 / 0 2426 / 2426 1139 / 1139 Weight 151 lb 0.972 oz 157 lb 3.2 oz 159 lb 4 oz Microbiology Reports for the Last 24 Hours: Microbiology 11/22/21 01:38 Blood Blood Culture - Preliminary 11/22/21 01:38 Blood Blood Culture - Preliminary NO GROWTH AFTER 48 HOURS 11/23/21 11:50 Sputum - Expectorated Sputum Gram Stain - Final Narrative: Patient is alert, verbal. Demented. Very clearly indicates her desire for her wounds not to be touched. Otherwise has no complaints. Is able to respond to commands such as taking a deep breath. Lungs sound pretty good this morning. Heart rate regular. Extremities/wound exam per nursing pictures from yesterday. Assessment and Plan (1) Severe sepsis with acute organ dysfunction Status: Acute Category: Medical Code(s): A41.9 - Sepsis, unspecified organism; R65.20 - Severe sepsis without septic shock (2) Healthcare-associated pneumonia Status: Acute Category: Medical Code(s): J18.9 - Pneumonia, unspecified organism (3) Decubitus ulcers Status: Chronic Qualifiers: Pressure injury location: other site Pressure injury stage: unspecified pressure injury stage Qualified Code(s): L89.899 - Pressure ulcer of other site, unspecified stage Category: Medical Code(s): L89.90 - Pressure ulcer of unspecified site, unspecified stage (4) Type 2 diabetes mellitus Status: Chronic Qualifiers: Diabetes mellitus retirement insulin use: unspecified termite control servicer insulin use status Diabetes mellitus complication status: with other specified complication Qualified Code(s): E11.69 - Type 2 diabetes mellitus with other specified complication Category: Medical Code(s): E11.9 - Type 2 diabetes mellitus without complications (5) Peripheral vascular disease Status: Chronic Category: Medical Code(s): I73.9 - Peripheral vascular disease, unspecified (6) Severe protein-ca
[2021-11-24 08:57] LABS: Vancomycin,Peak 22.6 ug/ml (11-39)
--- NOTE | 2021-11-24 10:28 | PC.NURSE ---
Unable to access PICC line, notified RN and RN notified Dr Birch.
--- NOTE | 2021-11-24 10:37 | DIET.NUTRFU ---
Rounded with provider, TF running tolerating at 65ml/hr with goal rate at 85ml/hr. Goal rate will meet healing needs at 2040kcal (30kcal/kg), 85gm protein (1.3gm/kg) and 1740ml free water with flush of 50ml TID to provide additional 150ml with [id number]/day( 28ml/kg). Healing needs are 30kcal/kg, 1.5gm/kg protein and CHF is 25-30ml/kg. Receiving beneprotein via tube 1 scoop BID to provide additional 12gm protein with total protein at 97gm/day. Multiple areas of skin breakdown with topical tx in place. Once goal rate reached via TF, discontinue IVF to avoid fluid overload. Labs reviewed, hydration WNL
[2021-11-24 10:41] LABS: POC Glucose,Bedside 152 (70-110)
[2021-11-24 16:10] LABS: POC Glucose,Bedside 154 (70-110)
--- NOTE | 2021-11-24 17:56 | PC.NURSE ---
TUBE FEED 65 ML/HR AND PT TOLERATED WELL. RESIDUALS CHECKED Q4HR. DRESSINGS CHANGED THIS SHIFT. 1 SOFT BM NOTED THIS SHIFT. HEEL PROTECTORS IN PLACE. TOLERATING RA WELL AT TIME OF WRITING.
[2021-11-24 20:42] LABS: POC Glucose,Bedside 151 (70-110)
[2021-11-25] VITALS (7 sets, daily range): BP systolic 100–126; BP diastolic 42–62; PULSE 64–95; RESP 16–24; TEMP 36.2–38.3; O2SAT 89–94; BMI 26.2
--- NOTE | 2021-11-25 03:30 | PC.NURSE ---
Addendum entered by Zaria Centeno RN 11/25/21 06:52: Patient has been treated for a fever of 100.9 at this time. Patient also has been placed on 2LNC with oxygen saturation in the low 90%. Original Note: Patient has met her goal rate of tube feeding at at 0200. Patient has tolerated feed rate well with no residual thus far. Patient has been turned q2Hr and tolerated it this fair. Patient was febrile at the beginning of the shift with a rectal temp of 100.3 patient was treated with Tylenol suppository with favorable results. Patient's dressings remain intact on wounds.
[2021-11-25 05:44] LABS: POC Glucose,Bedside 172 (70-110)
[2021-11-25 06:35] LABS: Basophils # 0.1 K/mm3 (0-0.2); Basophils % 0.5 % (0.1-2.0); Eosinophils # 0.3 K/mm3 (0.0-0.4); Eosinophils % 1.8 % (0.1-12.0); Hematocrit 23.7 % (37.0-47.0); Hemoglobin 7.3 g/dL (12.2-16.2); Lymphocytes # 0.9 K/mm3 (0.7-4.5); Lymphocytes % 5.1 % (10-50); Mean Corpuscular HGB Conc 30.6 g/dL (31.8-35.4); Mean Corpuscular Hemoglobin 28.7 pg (27.0-31.2); Mean Corpuscular Volume 93.8 fl (81-99); Mean Platelet Volume 9.4 fl (7.4-10.4); Monocytes # 0.8 K/mm3 (0.1-1.0); Monocytes % 4.7 % (1.7-9.3); Neutrophils # 15.2 K/mm3 (1.8-7.8); Neutrophils % 87.9 % (37.0-80.0); Platelet Count 467 K/mm3 (142-424); Red Blood Count 2.53 M/mm3 (4.20-5.40); Red Cell Distribution Width 17.7 % (11.5-17.5); White Blood Count 17.3 K/mm3 (4.8-10.8)
[2021-11-25 06:37] LABS: MANUAL DIFFERENTIAL MANUAL DIFFERENTIAL (MANUAL DIFF)
[2021-11-25 07:10] LABS: Eosinophils % 1 % (0-3); Lymphocytes % 7 % (10-50); Monocytes % 1 % (2-9); Neutrophils % 90 % (42-76); Platelet Estimate Slight Increase; RBC Morphology Normal; Total Cells Counted 100
[2021-11-25 07:11] LABS: Anion Gap 10.1 mEq/L (5-15); Blood Urea Nitrogen 25 mg/dl (7-17); Calcium 7.5 mg/dl (8.4-10.2); Carbon Dioxide 21 mmol/L (22.0-30.0); Chloride 112 mmol/L (98-107); Creatinine Clearance Estimated 51 mL/min (50-200); Estimated Glomerular Filt Rate 96 ml/min (>60); GFR (African American) 116 ML/MIN (>60); Glucose 178 mg/dl (74-100); Potassium 5.1 mmoL/L (3.5-5.1); Sodium 138 mmol/L (136-145)
--- NOTE | 2021-11-25 08:33 | HMH.ACPN2 ---
Internal Medicine - PN: Subj *Date: 11/25/21 *Time: 08:33 Interval history: Patient has continued to decline over the past 24 hours. In spite of adequate and appropriate antibiotic therapy for her cultures, she continues to spike fevers over 100 degrees. She continues to exhibit dyspnea, significant pain behaviors and lots of anxiety behaviors but is nonverbal and unable to communicate her wishes. Her wounds remain significant, please see nursing care notes for details. Wound care is extremely painful and upsetting for the patient. Exam Vital signs and Labs for Last 24 Hours: Temp Pulse Resp BP Pulse Ox 100.3 F H 95 H 24 115/45 L 92 L 11/25/21 08:00 11/25/21 08:00 11/25/21 08:00 11/25/21 08:00 11/25/21 08:00 Laboratory Results - last 24 hr 11/24/21 08:00: Vancomycin Peak 22.6 11/24/21 10:30: POC Glucose 152 H 11/24/21 16:03: POC Glucose 154 H 11/24/21 20:32: POC Glucose 151 H 11/25/21 05:28: POC Glucose 172 H 11/25/21 06:27: WBC 17.3 H, RBC 2.53 L, Hgb 7.3 L, Hct 23.7 L, MCV 93.8, MCH 28.7, MCHC 30.6 L, RDW 17.7 H, Plt Count 467 H, MPV 9.4, Neut % (Auto) 87.9 H, Lymph % (Auto) 5.1 L, [place] % (Auto) 4.7, Eos % (Auto) 1.8, Baso % (Auto) 0.5, Neut # (Auto) 15.2 H, Lymph # (Auto) 0.9, [place] # (Auto) 0.8, Eos # (Auto) 0.3, Baso # (Auto) 0.1, Total Counted 100, Neutrophils % (Manual) 90 H, Lymphocytes % (Manual) 7 L, Monocytes % (Manual) 1 L, Eosinophils % (Manual) 1, Metamyelocytes % 1.0, Platelet Estimate Slight increase, RBC Morphology Normal 11/25/21 06:27: Sodium 138, Potassium 5.1 D, Chloride 112 H, Carbon Dioxide 21 L, Anion Gap 10.1, BUN 25 H D, Creatinine 0.60 D, Estimated Creat Clear 51, Estimated GFR 96, Est GFR ( Amer) 116 D, Glucose 178 H, Calcium 7.5 L I & O for Last 24 hours: Intake & Output 11/22/21 11/23/21 11/24/21 11/25/21 11:59 11:59 11:59 11:59 Intake Total 3076 / 3076 1389 / 1389 4384 / 4384 Output Total 0 / 0 650 / 650 250 / 250 300 / 300 Balance 0 / 0 2426 / 2426 1139 / 1139 4084 / 4084 Weight 151 lb 0.972 oz 157 lb 3.2 oz 159 lb 4 oz 162 lb 12.8 oz Microbiology Reports for the Last 24 Hours: Microbiology 11/23/21 11:50 Sputum - Expectorated Sputum Gram Stain - Final 11/23/21 11:50 Sputum - Expectorated Sputum Sputum Culture - Preliminary 11/22/21 01:38 Blood Blood Culture - Preliminary Gram Negative Rods Narrative: Patient is dyspneic, tachypneic. Using mild accessory muscles. In mild respiratory distress. She is unresponsive to verbal stimuli. She withdraws aggressively to tactile stimuli. Urine output has slowed. Poor air movement. Heart rate regular. Pulses are weak and thready in her extremities. Wounds are clean and dressed appropriately by her nursing staff --please refer to picture documentation. Assessment and Plan (1) Severe sepsis with acute organ dysfunction Status: Acute Category: Medical Code(s): A41.9 - Sepsis, unspecified organism; R65.20 - Severe sepsis without septic shock (2) Healthcare-associated pneumonia Status: Acute Category: Medical Code(s): J18.9 - Pneumonia, unspecified organism (3) Decubitus ulcers Status: Chronic Qualifiers: Pressure injury location: other site Pressure injury stage: unspecified pressure injury stage Qualified Code(s): L89.899 - Pressure ulcer of other site, unspecified stage Category: Medical Code(s): L89.90 - Pressure ulcer of unspecified site, unspecified stage (4) Type 2 diabetes mellitus Status: Chronic Qualifiers: Diabetes mellitus terminal operations supervisor insulin use: unspecified skilled nursing insulin use status Diabetes mellitus complication status: with other specified complication Qualified Code(s): E11.69 - Type 2 diabetes mellitus with other specified complication Category: Medical Code(s): E11.9 - Type 2 diabetes mellitus without complications (5) Peripheral vascular disease Status: Chronic Category: Medical Code(s):
--- NOTE | 2021-11-25 09:26 | DIET.NUTRFU ---
Patient has reached goal rate for TF and IVF discontinued. Tolerating 85ml/hr providing 2040kcal (30kcal/kg), 85gm protein (1.3gm/kg) and 1740ml free water with flush of 50ml TID to provide additional 150ml with [id number]/day( 28ml/kg). Healing needs are 30kcal/kg, 1.5gm/kg protein and CHF is 25-30ml/kg. Receiving beneprotein via tube 1 scoop BID to provide additional 12gm protein with total protein at 97gm/day. She has shown some decline during night with fever and change in response. Provider plans to review overall POC with family, encourage comfort based on poor prognosis.
[2021-11-25 11:26] LABS: POC Glucose,Bedside 164 (70-110)
--- NOTE | 2021-11-25 13:54 | PC.NURSE ---
dressing changed on mid back, both buttock cheeks, b/l medial knees, b/l lateral and medial ankles, b/l big toes, left foot arch, right forearm/upper arm
[2021-11-25 17:08] LABS: POC Glucose,Bedside 168 (70-110)
[2021-11-25 20:47] LABS: POC Glucose,Bedside 177 (70-110)
[2021-11-26] VITALS (7 sets, daily range): BP systolic 119–165; BP diastolic 57–78; PULSE 64–96; RESP 17–22; TEMP 36.6–38.8; O2SAT 90–96; BMI 26.2
[2021-11-26 05:34] LABS: POC Glucose,Bedside 208 (70-110)
--- NOTE | 2021-11-26 05:37 | PC.NURSE ---
Addendum entered by Ольга Mark RN 11/26/21 06:25: 204 Beneprotein gave thorough gtube with [employer]. Original Note: Patient alert to self only. Patient rested intermittently throughout shift. Patient is anxious and fearful toward staff. 2100 checked placement of gtube positive placement auscultated, tube feed and tubing changed on 11/26/21 at 2100. Patient tolerating tube feed of Glurcerna well infusing at goal rate of 85ml/hr and flushing with 50ml of water Q8hrs. Residual checked every 4 hours. 2100-0ml, 0100- 0ml, and 0500- 5ml. Wound dressings changed on day shift are C/D/I. Patient became febrile around 0000 of 101.9F rect, medicated patient per mar patient now 99.0F rect. Oral care performed on patient several times throughout shift. Patient has been q 2hr turns muscle contracture noted. Patient has tolerated sats above 90's on 2-3l NC. Daughter has remained at bedside throughout night.
--- NOTE | 2021-11-26 09:44 | HMH.ACPN2 ---
Internal Medicine - PN: Subj *Date: 11/26/21 *Time: 09:44 Interval history: Patient was stable overnight, responded nicely to morphine injections with improved pain control and less dyspnea. Daughter is at bedside today. Pleased with pain control, lots of family have come to visit her. Exam Vital signs and Labs for Last 24 Hours: Temp Pulse Resp BP Pulse Ox 99.0 F 64 18 131/61 94 L 11/26/21 05:00 11/26/21 04:00 11/26/21 04:00 11/26/21 04:00 11/26/21 06:00 Laboratory Results - last 24 hr 11/25/21 10:16: POC Glucose 164 H 11/25/21 16:51: POC Glucose 168 H 11/25/21 20:38: POC Glucose 177 H 11/26/21 05:18: POC Glucose 208 H I & O for Last 24 hours: Intake & Output 11/23/21 11/24/21 11/25/21 11/26/21 11:59 11:59 11:59 11:59 Intake Total 3076 / 3076 1389 / 1389 4384 / 4384 1618 / 1618 Output Total 650 / 650 250 / 250 300 / 300 800 / 800 Balance 2426 / 2426 1139 / 1139 4084 / 4084 818 / 818 Weight 157 lb 3.2 oz 159 lb 4 oz 162 lb 12.8 oz 162 lb 12.806 oz Microbiology Reports for the Last 24 Hours: Microbiology 11/22/21 01:38 Blood Blood Culture - Preliminary Proteus mirabilis 11/23/21 11:50 Sputum - Expectorated Sputum Gram Stain - Final 11/23/21 11:50 Sputum - Expectorated Sputum Sputum Culture - Preliminary Narrative: Patient is dyspneic, tachypneic. Using mild accessory muscles. In mild respiratory distress. A little more alert, respiratory status slightly improved Urine output has slowed. Poor air movement. Heart rate regular. Pulses are weak and thready in her extremities. Wounds are clean and dressed appropriately by her nursing staff --please refer to picture documentation. Assessment and Plan (1) Severe sepsis with acute organ dysfunction Status: Acute Category: Medical Code(s): A41.9 - Sepsis, unspecified organism; R65.20 - Severe sepsis without septic shock (2) Healthcare-associated pneumonia Status: Acute Category: Medical Code(s): J18.9 - Pneumonia, unspecified organism (3) Decubitus ulcers Status: Chronic Qualifiers: Pressure injury location: other site Pressure injury stage: unspecified pressure injury stage Qualified Code(s): L89.899 - Pressure ulcer of other site, unspecified stage Category: Medical Code(s): L89.90 - Pressure ulcer of unspecified site, unspecified stage (4) Type 2 diabetes mellitus Status: Chronic Qualifiers: Diabetes mellitus continuous churn buttermaker insulin use: unspecified continuous churn buttermaker insulin use status Diabetes mellitus complication status: with other specified complication Qualified Code(s): E11.69 - Type 2 diabetes mellitus with other specified complication Category: Medical Code(s): E11.9 - Type 2 diabetes mellitus without complications (5) Peripheral vascular disease Status: Chronic Category: Medical Code(s): I73.9 - Peripheral vascular disease, unspecified (6) Severe protein-calorie malnutrition Status: Chronic Category: Medical Code(s): E43 - Unspecified severe protein-calorie malnutrition - Assessment and plan all Dx Assessment and Plan for all problems:: Doing well with palliative care. Observe over the next 24 hours. Consider transfer back to [place] with palliative care/antibiotics/morphine if stable.
[2021-11-26 11:51] LABS: POC Glucose,Bedside 159 (70-110)
[2021-11-26 22:06] LABS: POC Glucose,Bedside 198 (70-110)
--- NOTE | 2021-11-27 04:59 | PC.NURSE ---
Continue tube feeds at 50mL/hr and patient tolerating well. Staff has been turning patient every two hours to prevent further breakdown. She has had no c/o pain or discomfort. Daughter has been at bedside throughout shift. There was no growth on the blood cultures. Dressings being changed as needed. Call light in place and working appropriately.
[2021-11-27 05:00] VITALS: BMI 26.2
[2021-11-27 06:00] VITALS: TEMP 38.2
[2021-11-27 06:00] LABS: POC Glucose,Bedside 178 (70-110)
[2021-11-27 08:00] VITALS: BP 116/63; PULSE 88; RESP 18; TEMP 37.3; O2SAT 95
--- NOTE | 2021-11-27 09:34 | HMH.ACPN2 ---
Internal Medicine - PN: Subj *Date: 11/27/21 *Time: 09:34 Interval history: Patient has remained significantly obtunded over the last 24 hours, does arouse to painful stimuli, especially when nurses do wound care. Report a good response to morphine for pain and air hunger relief. Exam Vital signs and Labs for Last 24 Hours: Temp Pulse Resp BP Pulse Ox 99.1 F 88 18 116/63 95 11/27/21 08:00 11/27/21 08:00 11/27/21 08:00 11/27/21 08:00 11/27/21 08:00 Laboratory Results - last 24 hr 11/26/21 11:34: POC Glucose 159 H 11/26/21 21:43: POC Glucose 198 H 11/27/21 05:16: POC Glucose 178 H I & O for Last 24 hours: Intake & Output 11/24/21 11/25/21 11/26/21 11/27/21 11:59 11:59 11:59 11:59 Intake Total 1389 / 1389 4384 / 4384 1618 / 1618 1435 / 1435 Output Total 250 / 250 300 / 300 910 / 910 1300 / 1300 Balance 1139 / 1139 4084 / 4084 708 / 708 135 / 135 Weight 159 lb 4 oz 162 lb 12.8 oz 162 lb 12.806 oz 162 lb 12.806 oz Microbiology Reports for the Last 24 Hours: Microbiology 11/22/21 01:38 Blood Blood Culture - Final NO GROWTH AFTER 5 DAYS 11/24/21 21:30 Blood Blood Culture - Preliminary NO GROWTH AFTER 48 HOURS 11/23/21 11:50 Sputum - Expectorated Sputum Gram Stain - Final 11/23/21 11:50 Sputum - Expectorated Sputum Sputum Culture - Preliminary Gram Positive Cocci Narrative: Patient is dyspneic, tachypneic. Using mild accessory muscles. In mild respiratory distress. A little more alert, respiratory status slightly improved Urine output has slowed. Poor air movement. Heart rate regular. Pulses are weak and thready in her extremities. Wounds are clean and dressed appropriately by her nursing staff --please refer to picture documentation. Assessment and Plan (1) Severe sepsis with acute organ dysfunction Status: Acute Category: Medical Code(s): A41.9 - Sepsis, unspecified organism; R65.20 - Severe sepsis without septic shock (2) Healthcare-associated pneumonia Status: Acute Category: Medical Code(s): J18.9 - Pneumonia, unspecified organism (3) Decubitus ulcers Status: Chronic Qualifiers: Pressure injury location: other site Pressure injury stage: unspecified pressure injury stage Qualified Code(s): L89.899 - Pressure ulcer of other site, unspecified stage Category: Medical Code(s): L89.90 - Pressure ulcer of unspecified site, unspecified stage (4) Type 2 diabetes mellitus Status: Chronic Qualifiers: Diabetes mellitus shelter insulin use: unspecified shelter insulin use status Diabetes mellitus complication status: with other specified complication Qualified Code(s): E11.69 - Type 2 diabetes mellitus with other specified complication Category: Medical Code(s): E11.9 - Type 2 diabetes mellitus without complications (5) Peripheral vascular disease Status: Chronic Category: Medical Code(s): I73.9 - Peripheral vascular disease, unspecified (6) Severe protein-calorie malnutrition Status: Chronic Category: Medical Code(s): E43 - Unspecified severe protein-calorie malnutrition - Assessment and plan all Dx Assessment and Plan for all problems:: Overall patient's condition remains guarded, critical and essentially terminal. Continue palliative care with morphine, wound care and supportive care. Will discuss with family probable discharge back to her normal skilled nursing with palliative care and p.o. antibiotics now that bacteremia seems to have cleared.
--- NOTE | 2021-11-27 09:38 | P.PN_ITS ---
Internal Medicine - PN: Subj *Date: 11/27/21 *Time: 09:38 Exam Vital signs and Labs for Last 24 Hours: Temp Pulse Resp BP Pulse Ox 99.1 F 88 18 116/63 95 11/27/21 08:00 11/27/21 08:00 11/27/21 08:00 11/27/21 08:00 11/27/21 08:00 Laboratory Results - last 24 hr 11/26/21 11:34: POC Glucose 159 H 11/26/21 21:43: POC Glucose 198 H 11/27/21 05:16: POC Glucose 178 H I & O for Last 24 hours: Intake & Output 11/24/21 11/25/21 11/26/21 11/27/21 23:59 23:59 23:59 23:59 Intake Total 1363 / 1363 3836 / 3836 2108 / 2108 130 / 130 Output Total 250 / 250 800 / 800 610 / 610 1100 / 1100 Balance 1113 / 1113 3036 / 3036 1498 / 1498 -970 / -970 Weight 72.235 kg 73.845 kg 73.845 kg 73.845 kg Microbiology Reports for the Last 24 Hours: Microbiology 11/22/21 01:38 Blood Blood Culture - Final NO GROWTH AFTER 5 DAYS 11/24/21 21:30 Blood Blood Culture - Preliminary NO GROWTH AFTER 48 HOURS 11/23/21 11:50 Sputum - Expectorated Sputum Gram Stain - Final 11/23/21 11:50 Sputum - Expectorated Sputum Sputum Culture - Preliminary Gram Positive Cocci Assessment and Plan (1) Severe sepsis with acute organ dysfunction Status: Acute Category: Medical Code(s): A41.9 - Sepsis, unspecified organism; R65.20 - Severe sepsis without septic shock (2) Healthcare-associated pneumonia Status: Acute Category: Medical Code(s): J18.9 - Pneumonia, unspecified organism (3) Decubitus ulcers Status: Chronic Qualifiers: Qualified Code(s): L89.899 - Pressure ulcer of other site, unspecified stage Category: Medical Code(s): L89.90 - Pressure ulcer of unspecified site, unspecified stage (4) Type 2 diabetes mellitus Status: Chronic Qualifiers: Qualified Code(s): E11.69 - Type 2 diabetes mellitus with other specified complication Category: Medical Code(s): E11.9 - Type 2 diabetes mellitus without complications (5) Peripheral vascular disease Status: Chronic Category: Medical Code(s): I73.9 - Peripheral vascular disease, unspecified (6) Severe protein-calorie malnutrition Status: Chronic Category: Medical Code(s): E43 - Unspecified severe protein- calorie malnutrition The patient's infection will respond to the chosen ABx?: Yes Is the patient receiving the right drug, dose, and route?: Yes Could a more targeted ABx be ordered?: No
[2021-11-27 11:41] LABS: POC Glucose,Bedside 179 (70-110)
--- NOTE | 2021-11-27 15:41 | PC.NURSE ---
PT IS RESTING IN BED WITH FAMILY AT BEDSIDE. MEDICATED PER AUG FOR DISCOMFORT. PT IS TOLERATING TUBE FEEDINGS WELL AT GOAL RATE 85 ML/HR. GASTRIC RESIDUAL CHECKED Q4H. PT HAD 1 SCOOP OF BENEPROTEIN THIS MORNING. PT MOANS IN PAIN WHILE TURNING AND REPOSITIONING. ORAL CARE PROVIDED. PT HAS MULTIPLE AREAS OF BREAKDOWN NOTED WITH DRESSINGS INTACT. HEEL PROTECTORS IN PLACE. WILL CONTINUE TO MONITOR.
[2021-11-27 17:07] LABS: POC Glucose,Bedside 165 (70-110)
[2021-11-27 20:00] VITALS: BP 143/70; PULSE 64; RESP 18; TEMP 37.1; O2SAT 90
[2021-11-27 22:32] LABS: POC Glucose,Bedside 156 (70-110)
--- NOTE | 2021-11-28 03:13 | PC.NURSE ---
No acute changes this shift. Pt was bathed and new DSGs placed to wounds. Glucerna is infusing @ 85 ml/hr. 50 ml Q 8 hr. No residual noted. Medications administered per mar. Family remains at bedside.VSS. Will continue to monitor.
[2021-11-28 05:00] VITALS: BMI 26.9
[2021-11-28 05:37] LABS: POC Glucose,Bedside 181 (70-110)
[2021-11-28 08:00] VITALS: BP 119/59; PULSE 81; RESP 17; TEMP 37.5; O2SAT 92
--- NOTE | 2021-11-28 08:00 | [facility].DCSUM ---
General - General Admission date:: 11/22/21 Discharge date: 11/28/21 HPI HPI: Ms. Pemberton is a medically fragile 81-year-old female with chronic decubitus ulcers, bed bound status, dementia who [facility] due to hypoxia, fever, and altered mental status. She has had a progressive decline over the past 3 months since presenting to [facility] where she needed intubation, ended up with a G-tube, was sent home with home health and became nonambulatory. Was readmitted to [facility] with [facility]. Has continued to decline with worsening of her decubitus ulcers, malnutrition, and bedbound status. [facility] contacted on-call physician and was concerned that Ms. Pemberton was somewhat more confused, hypoxic with saturations in the 60s and 70s, and in more pain. She was transferred to the ER via EMS for further evaluation. On arrival to the ER she was found to be septic and initiated on sepsis bundle. Received fluids and broad-spectrum antibiotics. Cultures obtained. Admitted for further management of her progressing decubitus ulcers, suspected pneumonia, and respiratory failure. On rounds this morning patient is hemodynamically stable but frail appearing. Numerous wounds examined including decubitus ulcers on her hips, bilateral medial knees, feet. She is in pain with the slightest movement. Stable on supplemental oxygen. No meaningful response to questions from patient. Hospital Course Hospital Course: Patient was admitted, wound care was continued, patient's wounds had been slowly improving at local snf after significant decubitus have been acquired through her stay elsewhere and at her home, but she had a quite a bit of pain and wounds given there is significant encroachment into the joint spaces were infected. Blood cultures were positive for Proteus species, this was treated with intravenous cefepime and then transition to once a day Invanz. On the day of discharge sputum cultures showed MRSA, and she will be treated with Bactrim per G-tube. Long discussions with her daughter, Jennifer, were held, she did not wish to do hospice care because of her information from a relative who was somehow involved in healthcare that they would not continue wound care or antibiotics. We discussed this case with her and we decided to do palliative care without hospice services. Jennifer is now agreeable that her mother needs more palliative care, focusing on pain relief rather than aggressive therapies, and is very comfortable with this decision. Ms. Pemberton stabilized over the next 24 to 48 hours and urine output, respiratory status has been unchanged and stable. However, neurologically and physiologically she remains extremely frail, essentially noncommunicative, and sleeps quite a bit. She complains of a great deal of pain with dressing changes. She has been afebrile, repeat blood cultures have been negative, and pain is been fairly well controlled on intravenous morphine. As a result, plan will be to [facility] today, she will be a DNR patient as well as under palliative care and our plan is not to transfer back to the hospital if she declines. Her daughter is agreeable with this plan. Plan will be to do Augmentin liquid through G-tube, to finish up therapy for Proteus, for the next 10 days. As well as Roxanol under her tongue for pain relief. We will also do Ativan in the G-tube as noted on discharge reconciliation plans. Tube feedings will continue, wound care and dressing changes will continue as had been done here at the hospital. Please review hospital nursing records for dressing change details. Objective Vital signs: Temp Pulse Resp BP Pulse Ox 98.8 F 64 18 143/70 H 90 L 11/27/21 20:00 11/27/21 20:00 11/27/21 20:00 11/27/21 20:00 11/27/21 20:00 mild distress
--- NOTE | 2021-11-28 08:52 | PC.NURSE ---
Per MD Birch, keep roberto in at [place] for skin integrity.
--- NOTE | 2021-11-28 08:54 | PC.NURSE ---
0807- Spoke to derrick in lab regarding sputum culture results. verified name, and room number 0808-Notified MD Birch during rounds, NNO
--- NOTE | 2021-11-28 09:59 | PC.NURSE ---
09- called report to [facility], spoke to Lana 0919- Notified [facility] of need for transfer. States they will be here shortly. 0925- PIV removed, g-tube flushed and pt taken off of all monitors
== END 2021-11-28 10:10 | DRG 871 ==
LOC: ER 02:37 → 2ND 10:19
PROVIDERS: Admitting Provider Internal Medicine Adolescent Medicine; Emergency Provider Emergency Medicine; PCP Internal Medicine Adolescent Medicine; Visit Provider Internal Medicine Adolescent Medicine
DX: A41.50 Gram-negative sepsis, unspecified (principal); E43 Unspecified severe protein-calorie malnutrition; J15.212 Pneumonia due to Methicillin resistant Staphylococcus aureus; J96.90 Respiratory failure, unspecified, unspecified whether with hypoxia or hypercapnia; J18.9 Pneumonia, unspecified organism; R65.20 Severe sepsis without septic shock; Y95 Nosocomial condition; Z86.718 Personal history of other venous thrombosis and embolism; E78.5 Hyperlipidemia, unspecified; I73.9 Peripheral vascular disease, unspecified; I50.9 Heart failure, unspecified; F03.90 Unspecified dementia, unspecified severity, without behavioral disturbance, psychotic disturbance, mood disturbance, and anxiety; Z20.822 Contact with and (suspected) exposure to COVID-19; Z74.01 Bed confinement status; L89.899 Pressure ulcer of other site, unspecified stage; L89.209 Pressure ulcer of unspecified hip, unspecified stage; L89.109 Pressure ulcer of unspecified part of back, unspecified stage; E11.51 Type 2 diabetes mellitus with diabetic peripheral angiopathy without gangrene; Z68.26 Body mass index [BMI] 26.0-26.9, adult; Z79.84 Long term (current) use of oral hypoglycemic drugs; D64.9 Anemia, unspecified; Z51.5 Encounter for palliative care
CPT/HCPCS: 36415; 71045; 74018; 80048; 80053; 80202; 81001; 82150; 82803; 82962; 83605; 83690; 83735; 84145; 84484; 85007; 85025; 85651; 86140; 87040; 87070; 87077; 87186; 87205; 93005; 94760; 96375; 99285; C1751; C9803; J0692; J1335; J3370; U0003; U0005